=== PATIENT | male | born 1945 | race Caucasian/White ===

== ENCOUNTER 2017-07-31 17:36 | Inpatient (IN) | payer MEDICARE, OTHER ==
[~2017-07-31] VITALS: Ht 193 cm; Wt 119.3 kg
[2017-07-31] VITALS (11 sets, daily range): BP systolic 83–112; BP diastolic 64–87
[~2017-07-31 17:36] MED LIST: ASCO10002 PO; SERT100T PO
[2017-07-31] MEDS ORDERED: ACETAMINOPHEN 325 MG TABLET. PO PRN (19:30)
[2017-07-31] MEDS ORDERED: MAG HYDROX/ALUMINUM HYD/SIMETH 30 ML ORAL.SUSP PO PRN (19:30)
[2017-07-31] MEDS ORDERED: CALCIUM CARBONATE 500 MG TAB.CHEW PO PRN (19:30)
[2017-07-31] MEDS ORDERED: KETOROLAC 15 MG/ML VIAL. IV PRN (19:30)
[2017-07-31] MEDS ORDERED: PROCHLORPERAZINE 10 MG/2 ML VIAL. IV PRN (19:30)
[2017-07-31] MEDS ORDERED: ONDANSETRON PF 4 MG/2 ML VIAL. IV PRN (19:30)
[2017-07-31] MEDS ORDERED: IBUPROFEN 400 MG TABLET. PO PRN (19:30)
[2017-07-31] MEDS ORDERED: MORPHINE SULFATE 4 MG/ML DISP.SYRIN. IV PRN (19:30)
[2017-07-31] MEDS ORDERED: PROCHLORPERAZINE 25 MG SUPP.RECT. PR PRN (19:30)
[2017-07-31] MEDS ORDERED: oxyCODONE IR 5 MG TABLET PO PRN (19:30)
[2017-07-31] MEDS ORDERED: MAGNESIUM HYDROXIDE 2,400 MG/30 ML ORAL.SUSP. PO PRN (19:30)
[2017-07-31] MEDS ORDERED: BISACODYL 10 MG SUPP.RECT. PR PRN (19:30)
--- NOTE | 2017-07-31 20:12 | PDOC1 ---
History and Physical Date of Admission Date of Admission DATE: 07/31/17 TIME: 20:06 Identification/Chief Complaint Chief Complaint SOA, palpitations Problems: Source Source: Caregiver, Chart review, Patient History of Present Illness History of Present Illness Very pleasant 72 y.o male who was in PCP office Dr Mcdonald today for an annual physical when PCP found him to be in atrial fib RVR. New to him, ONly pas medical is depression on zoloft 100qhs and ASA 81. HE is a prev heavy drinker/alcoholic and smoker but sober now for many yrs, PCP did CT chest which showed also possible subsegmental filling defect that could be either small PE or artifactual,. HE has noticed some SOA past few weeks, Good mobility, no leg edema, no recent long travels or sx. Admitted to ICU, He did get lovenox SQ at [place], HR 1teens now, sweaty.no CP. BP good, at bedside,. Past Medical History Psych: Addictions, Depression Past Surgical History Past Surgical History: No pertinent history Family History Family History: Hypertension Social History Smoke: Quit ALCOHOL: other (recovered alcoholic) Current Medications Current Medications Current Medications Ondansetron HCl (Zofran) 4 mg PRN Q6HRS PRN IV NAUSEA/VOMITING; Start 07/31/17 at 19:30 Prochlorperazine Edisylate (Compazine) 10 mg PRN Q6HRS PRN IV NAUSEA/VOMITING; Start 07/31/17 at 19:30 Prochlorperazine (Compazine) 25 mg PRN Q12HR PRN [place] NAUSEA/VOMITING; Start at 19:30 Al Hydroxide/Mg Hydroxide (Mylanta Plus Xs) 30 ml PRN Q3HRS PRN PO HEARTBURN / GAS; Start 07/31/17 at 19:30 Calcium Carbonate/ Glycine (Tums) 500 mg PRN Q3HRS PRN PO UPSET STOMACH; Start 07/31/17 at 19:30 Oxycodone HCl (Roxicodone) 5 mg PRN Q3HRS PRN PO BREAKTHROUGH PAIN; Start 07/31 at 19:30 Morphine Sulfate 1 mg PRN Q1HR PRN IV PAIN; Start 07/31/17 at 19:30 Ketorolac Tromethamine (Toradol) 15 mg PRN Q6HRS PRN IV PAIN; Start 07/31/17 at 19:30; Stop 08/05/17 at 19:29 Acetaminophen (Tylenol) 650 mg PRN Q6HRS PRN PO Headaches, Temp > 101.5F; Start 07/31/17 at 19:30 Ibuprofen (Motrin) 400 mg PRN Q6HRS PRN PO MILD PAIN; Start 07/31/17 at 19:30 Docusate Sodium (Colace) 100 mg BID PO ; Start 07/31/17 at 21:00 Magnesium Hydroxide (Milk Of Magnesia) 2,400 mg PRN Q12HR PRN PO CONSTIPATION; Start 07/31/17 at 19:30 Bisacodyl (Dulcolax Supp) 10 mg PRN DAILY PRN [place] CONSTIPATION; Start 07/31/17 at 19:30 Ceftriaxone Sodium 1 gm/ Sodium Chloride 50 ml @ 100 mls/hr Q24H IV ; Start at 09:00 Sertraline HCl (Zoloft) 100 mg DAILY PO ; Start 08/01/17 at 09:00 Ascorbic Acid (Vitamin C) 500 mg DAILY PO ; Start 08/01/17 at 09:00 Active Scripts Active Reported Zoloft (Sertraline Hcl) 100 Mg Tablet 100 Mg PO DAILY Vitamin C (Ascorbic Acid) 1,000 Mg Tablet 1,000 Mg PO Allergies Allergies: Coded Allergies: venlafaxine (Verified Allergy, Intermediate, Rash, 07/08/16) ROS Review of System as per HPI, otherwise all else is neg, 14 pt reviewed Physical Exam General: Alert, Oriented X3, Cooperative, No acute distress HEENT: Atraumatic, PERRLA Lungs: Clear to auscultation, Normal air movement Heart: no gallops, no murmurs, murmurs, no jug vein distention, irregularly irregular Abdomen: Normal bowel sounds, Soft, No tenderness, No hepatosplenomegaly, No masses Male Genitals Exam: normal genitalia, normal prostate Rectal Exam: not examined PELVIC: Nml ext genitalia Extremities: No clubbing, No cyanosis, No edema, Normal pulses, No tenderness/ swelling Skin: No rashes, No breakdown, No significant lesion Neuro: Normal gait, Normal speech, Strength at 5/5 X4 ext, Normal tone, Sensation intact, Cranial nerves 3-12 NL, Reflexes 2+ Psych/Mental Status: Mental status NL, Mood NL VTE Prophylaxis Ordered VTE Prophylaxis Devices: Yes VTE Pharmacological Prophylaxi: Yes Assessment/Plan Assessment/Plan 1. New atrial fib RVF 2. SUbsegmental pulmonary filling defect, Small PE vs artifactual 3. Recoverd alcoholic 4. Ex smoker - [id number] yrs ago 5. Depression NOS PLAn: Admit ICU CArdizem gtt Lovenox qweight based 120 BID since also ? PE Check venous dopplers Seek pulmo opinion re this ? small PE Check TSH and calcium mag and elytes and basic labs in AM Cycle CE Cards consult PT/OT Ambulate ad janes when rate better Afib plan and tx dw and pt - agreeable Seen in ICU Dw PCP MARISSA Salter MD Jul 31, 2017 20:12
[2017-07-31] MEDS ORDERED: chlordiazePOXIDE HCL 25 MG CAPSULE PO PRN (20:15)
[2017-07-31] MEDS: DOCUSATE SODIUM 100 MG CAPSULE. PO SCH (20:37)
[2017-08-01] VITALS (15 sets, daily range): BP systolic 76–163; BP diastolic 57–106
[2017-08-01 04:57] LABS: BASO % 0 % (0-3); EOS % 5 % (0-3); HEMATOCRIT 40.5 % (39.0-53.0); HEMOGLOBIN 13.9 g/dL (13.0-17.5); LYMPH # 1.1 x10^3/uL (1.0-4.8); LYMPH % 12 % (24-48); MEAN CORPUSCULAR HEMOGLOBIN 34 pg (25-35); MEAN CORPUSCULAR HGB CONC 34 g/dL (31-37); MEAN CORPUSCULAR VOLUME 100 fL (79-100); MONO % 8 % (0-9); NEUT % 75 % (31-73); PLATELET COUNT 161 x10^3/uL (140-400); RED BLOOD COUNT 4.05 x10^6/uL (4.30-5.70); RED CELL DISTRIBUTION WIDTH 13.7 % (11.5-14.5)
[2017-08-01 05:20] LABS: INR 1.4 (0.8-1.1)
--- NOTE | 2017-08-01 07:16 | PDOC ---
CARDIOLOGY PROGRESS NOTE SUBJECTIVE: Transferred from [place] for Cardiomyopathy eval. Please see consult note from [facility]. Today reports that symptoms of dyspnea are labile, on/off. No chest pain. OBJECTIVE: Vital SIgns: Vital Signs Date Time Temp Pulse Resp B/P (MAP) Pulse Ox O2 Delivery O2 Flow Rate FiO2 08/01/17 06:12 104 20 108/85 (93) 95 Nasal Cannula 2.0 08/01/17 04:15 97.4 97.4 Objective: Gen: A/O x3. NAD CVS; Irr irr. No m/r/g PULM: CTAB ABD: Soft, NT/ND +BS EXT: No edema. Diminished pulses. NEURO:Non-focal exam. CURRENT MEDICATIONS: No current CV meds. On Lovenox. DIAGNOSTIC TESTING: Tele: HR 110's ASSESSMENT: 1. New onset atrial fibrillation - likely ongoing for several months based on description 2. New onset cardiomyopathy - acute on chronic systolic heart failure 3. Possible P.E - likely artifact Problems: PLAN: 1. Start Metoprolol 25mg q 6 hours for rate control. Stop Diltiazem 2. Continue Lovenox for anticoagulation for afib - will hold dose on thursday morning in prep for cardiac cath on thursday. 3. Suspect his cardiomyopathy may be related to alcohol use in the past and or new afib. Given age, will rule out heart disease. 4. Lasix 40mg ivp daily for diuresis. Monitor lytes daily Will follow along. Thanks for consultation. Please see consult note from [place] for full details. ROSALIA BRYANT MD Aug 01, 2017 07:16
[2017-08-01 07:40] LABS: CALCIUM 8.7 mg/dL (8.5-10.1); CREATININE 0.9 mg/dL (0.7-1.3); GFR 82.7; POTASSIUM 4.4 mmol/L (3.5-5.1)
--- NOTE | 2017-08-01 08:23 | EKG ---
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 R-S TRANSITION ZONE IN V LEADS DISPLACED TO THE LEFT LOW LIMB LEAD VOLTAGE S1,S2,S3 PATTERN NONSPECIFIC ST-T WAVE CHANGES. RI6.01 No previous ECG available for comparison Electronically Signed On 08-19-2017 10:46:14 CDT by Kingsley Bhakta
[2017-08-01] MEDS ORDERED: ASCORBIC ACID 500 MG TABLET PO SCH (09:00)
[2017-08-01] MEDS: DOCUSATE SODIUM 100 MG CAPSULE. PO SCH ×2 (09:23→09:31)
[2017-08-01] MEDS: METOPROLOL TART IMMED RELEASE 25 MG TABLET. PO SCH ×4 (09:24→23:50)
[2017-08-01] MEDS: FUROSEMIDE 40 MG/4 ML VIAL. IVP SCH (09:26)
[2017-08-01] MEDS: SERTRALINE 50 MG TABLET. PO SCH (09:27)
--- NOTE | 2017-08-01 10:11 | PDOC ---
PROGRESS NOTES Chief Complaint Chief Complaint 1. New atrial fib RVF 2. SUbsegmental pulmonary filling defect, Small PE vs artifactual 3. Recoverd alcoholic 4. Ex smoker - [id number] yrs ago 5. Depression NOS 6. 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 History of Present Illness History of Present Illness Seen in iCU SOme soa but no CP BP tanked with cardizem gtt Getting lovenox BID dose NO hx pE in past [facility]ds note reviewed, planned on [facility] thursday, start PO BB today - stop cardziem' COnt BID lovenox dose, await pulmo opinion re ? PE Discussed all tehse with and pt PLAN: [facility] thursday OK to t/o ICU COnt lovenox BID dose Follow cards and pulmo recs Supprotive meds To start PO BB today Vitals Vitals Vital Signs Date Time Temp Pulse Resp B/P (MAP) Pulse Ox O2 Delivery O2 Flow Rate FiO2 08/01/17 09:24 152/84 08/01/17 06:12 104 20 95 Nasal Cannula 2.0 08/01/17 04:15 97.4 97.4 Physical Exam General: Alert, Oriented X3, Cooperative, No acute distress Abdomen: Normal bowel sounds, Soft, No tenderness, No hepatosplenomegaly, No masses Extremities: No clubbing, No cyanosis, No edema, Normal pulses, No tenderness/ swelling Skin: No rashes, No breakdown, No significant lesion Labs LABS Laboratory Tests Test 08/01/17 04:00 08/01/17 04:30 White Blood Count 9.0 x10^3/uL (4.0-11.0) Red Blood Count 4.05 x10^6/uL (4.30-5.70) Hemoglobin 13.9 g/dL (13.0-17.5) Hematocrit 40.5 % (39.0-53.0) Mean Corpuscular Volume 100 fL (79-100) Mean Corpuscular Hemoglobin 34 pg (25-35) Mean Corpuscular Hemoglobin Concent 34 g/dL (31-37) Red Cell Distribution Width 13.7 % (11.5-14.5) Platelet Count 161 x10^3/uL (140-400) Neutrophils (%) (Auto) 75 % (31-73) Lymphocytes (%) (Auto) 12 % (24-48) Monocytes (%) (Auto) 8 % (0-9) Eosinophils (%) (Auto) 5 % (0-3) Basophils (%) (Auto) 0 % (0-3) Neutrophils # (Auto) 6.7 x10^3uL (1.8-7.7) Lymphocytes # (Auto) 1.1 x10^3/uL (1.0-4.8) Monocytes # (Auto) 0.7 x10^3/uL (0.0-1.1) Eosinophils # (Auto) 0.5 x10^3/uL (0.0-0.7) Basophils # (Auto) 0.0 x10^3/uL (0.0-0.2) Prothrombin Time 16.0 SEC (11.7-14.0) Prothromb Time International Ratio 1.4 (0.8-1.1) Sodium Level 137 mmol/L (136-145) Potassium Level 4.4 mmol/L (3.5-5.1) Chloride Level 101 mmol/L (98-107) Carbon Dioxide Level 25 mmol/L (21-32) Anion Gap 11 (6-14) Blood Urea Nitrogen 16 mg/dL (8-26) Creatinine 0.9 mg/dL (0.7-1.3) Estimated GFR (Cockcroft-Gault) 82.7 Glucose Level 127 mg/dL (70-99) Calcium Level 8.8 mg/dL (8.5-10.1) Phosphorus Level 3.0 mg/dL (2.6-4.7) Magnesium Level 2.0 mg/dL (1.8-2.4) Thyroid Stimulating Hormone (TSH) 1.786 uIU/mL (0.358-3.74) Review of Systems Review of Systems soa Comment Review of Relevant I have reviewed the following items yo (where applicable) has been applied. Labs Laboratory Tests Test 08/01/17 04:00 08/01/17 04:30 White Blood Count 9.0 x10^3/uL (4.0-11.0) Red Blood Count 4.05 x10^6/uL (4.30-5.70) Hemoglobin 13.9 g/dL (13.0-17.5) Hematocrit 40.5 % (39.0-53.0) Mean Corpuscular Volume 100 fL (79-100) Mean Corpuscular Hemoglobin 34 pg (25-35) Mean Corpuscular Hemoglobin Concent 34 g/dL (31-37) Red Cell Distribution Width 13.7 % (11.5-14.5) Platelet Count 161 x10^3/uL (140-400) Neutrophils (%) (Auto) 75 % (31-73) Lymphocytes (%) (Auto) 12 % (24-48) Monocytes (%) (Auto) 8 % (0-9) Eosinophils (%) (Auto) 5 % (0-3) Basophils (%) (Auto) 0 % (0-3) Neutrophils # (Auto) 6.7 x10^3uL (1.8-7.7) Lymphocytes # (Auto) 1.1 x10^3/uL (1.0-4.8) Monocytes # (Auto) 0.7 x10^3/uL (0.0-1.1) Eosinophils # (Auto) 0.5 x10^3/uL (0.0-0.7) Basophils # (Auto) 0.0 x10^3/uL (0.0-0.2) Prothrombin Time 16.0 SEC (11.7-14.0) Prothromb Time International Ratio 1.4 (0.8-1.1) Sodium Level 137 mmol/L (136-145) Potassium Level 4.4 mmol/L (3.5-5.1) Chloride Level 101 mmol/L (98-107) Carbon Dioxide Level 25 mmol/L (21-32) Anion Gap 11 (6-14) Blood Urea Nitrogen 16 mg/dL (8-26) Creatinine 0.9 mg/dL (0.7-1.3) Estimated GFR (Cockcroft-Gault) 82.7 Glucose Level 127 mg/dL (70-99) Calcium Level 8.8 mg/dL (8.5-10.1) Phosphorus Level 3.0 mg/dL (2.6-4.7) Magnesium Level 2.0 mg/dL (1.8-2.4) Thyroid Stimulating Hormone (TSH) 1.786 uIU/mL (0.358-3.74) Laboratory Tests Test 08/01/17 04:00 08/01/17 04:30 White Blood Count 9.0 x10^3/uL (4.0-11.0) Red Blood Count 4.05 x10^6/uL (4.30-5.70) Hemoglobin 13.9 g/dL (13.0-17.5) Hematocrit 40.5 % (39.0-53.0) Mean Corpuscular Volume 100 fL (79-100) Mean Corpuscular Hemoglobin 34 pg (25-35) Mean Corpuscular Hemoglobin Concent 34 g/dL (31-37) Red Cell Distribution Width 13.7 % (11.5-14.5) Platelet Count 161 x10^3/uL (140-400) Neutrophils (%) (Auto) 75 % (31-73) Lymphocytes (%) (Auto) 12 % (24-48) Monocytes (%) (Auto) 8 % (0-9) Eosinophils (%) (Auto) 5 % (0-3) Basophils (%) (Auto) 0 % (0-3) Neutrophils # (Auto) 6.7 x10^3uL (1.8-7.7) Lymphocytes # (Auto) 1.1 x10^3/uL (1.0-4.8) Monocytes # (Auto) 0.7 x10^3/uL (0.0-1.1) Eosinophils # (Auto) 0.5 x10^3/uL (0.0-0.7) Basophils # (Auto) 0.0 x10^3/uL (0.0-0.2) Prothrombin Time 16.0 SEC (11.7-14.0) Prothromb Time International Ratio 1.4 (0.8-1.1) Sodium Level 137 mmol/L (136-145) Potassium Level 4.4 mmol/L (3.5-5.1) Chloride Level 101 mmol/L (98-107) Carbon Dioxide Level 25 mmol/L (21-32) Anion Gap 11 (6-14) Blood Urea Nitrogen 16 mg/dL (8-26) Creatinine 0.9 mg/dL (0.7-1.3) Estimated GFR (Cockcroft-Gault) 82.7 Glucose Level 127 mg/dL (70-99) Calcium Level 8.8 mg/dL (8.5-10.1) Phosphorus Level 3.0 mg/dL (2.6-4.7) Magnesium Level 2.0 mg/dL (1.8-2.4) Thyroid Stimulating Hormone (TSH) 1.786 uIU/mL (0.358-3.74) Medications Current Medications Ondansetron HCl (Zofran) 4 mg PRN Q6HRS PRN IV NAUSEA/VOMITING, 1ST CHOICE; Start 07/31/17 at 19:30 Prochlorperazine Edisylate (Compazine) 10 mg PRN Q6HRS PRN IV NAUSEA/VOMITING, 2ND CHOICE; Start 07/31/17 at 19:30 Prochlorperazine (Compazine) 25 mg PRN Q12HR PRN [place] NAUSEA/VOMITING; Start at 19:30 Al Hydroxide/Mg Hydroxide (Mylanta Plus Xs) 30 ml PRN Q3HRS PRN PO HEARTBURN / GAS; Start 07/31/17 at 19:30 Calcium Carbonate/ Glycine (Tums) 500 mg PRN Q3HRS PRN PO UPSET STOMACH; Start 07/31/17 at 19:30 Oxycodone HCl (Roxicodone) 5 mg PRN Q3HRS PRN PO BREAKTHROUGH PAIN; Start 07/31 at 19:30 Morphine Sulfate 1 mg PRN Q1HR PRN IV PAIN; Start 07/31/17 at 19:30 Ketorolac Tromethamine (Toradol) 15 mg PRN Q6HRS PRN IV PAIN; Start 07/31/17 at 19:30; Stop 08/05/17 at 19:29 Acetaminophen (Tylenol) 650 mg PRN Q6HRS PRN PO Headaches, Temp > 101.5F; Start 07/31/17 at 19:30 Ibuprofen (Motrin) 400 mg PRN Q6HRS PRN PO MILD PAIN; Start 07/31/17 at 19:30 Docusate Sodium (Colace) 100 mg BID PO ; Start 07/31/17 at 21:00 Magnesium Hydroxide (Milk Of Magnesia) 2,400 mg PRN Q12HR PRN PO CONSTIPATION; Start 07/31/17 at 19:30 Bisacodyl (Dulcolax Supp) 10 mg PRN DAILY PRN [place] CONSTIPATION; Start 07/31/17 at 19:30 Ceftriaxone Sodium 1 gm/ Sodium Chloride 50 ml @ 100 mls/hr Q24H IV Last administered on 08/01/17t 09:26; Start 08/01/17 at 09:00 Sertraline HCl (Zoloft) 100 mg DAILY PO Last administered on 08/01/17 09:27; Start 08/01/17 at 09:00 Ascorbic Acid (Vitamin C) 500 mg DAILY PO Last administered on 08/01/17 09:23 ; Start 08/01/17 at 09:00 Enoxaparin Sodium (Lovenox 120mg Syringe) 120 mg Q12HR SQ Last administered on 08/01/17 09:24; Start 07/31/17 at 21:00 Chlordiazepoxide (Librium) 25 mg PRN Q6HRS PRN PO ANXIETY / AGITATION; Start at 20:15 Diltiazem HCl 125 mg/Dextrose 125 ml @ 0 mls/hr CONT PRN IV SEE I/O RECORD Last administered on 07/31/17 20:37; Start 07/31/17 at 20:15 Zolpidem Tartrate (Ambien) 5 mg PRN QHS PRN PO INSOMNIA; Start 07/31/17 at 20: 15 Metoprolol Tartrate (Lopressor) 25 mg Q6HRS PO Last administered on 08/01/17 09:24; Start 08/01/17 at 07:30 Furosemide (Lasix) 40 mg DAILY IVP Last administered on 08/01/17 09:26; Start 08/01/17 at 09:00 Active Scripts Active Reported Zoloft (Sertraline Hcl) 100 Mg Tablet 100 Mg PO DAILY Vitals/I & O Vital Sign - Last 24 Hours 07/31/17 07/31/17 07/31/17 07/31/17 18:45 19:00 19:30 20:00 Temp 99.1 99.1 Pulse 125 126 128 Resp 20 20 20 B/P (MAP) 107/80 (89) 108/80 (89) 100/87 (91) Pulse Ox 95 95 O2 Delivery Room Air Room Air Room Air Room Air 07/31/17 07/31/17 07/31/17 07/31/17 20:30 20:37 20:50 21:00 Pulse 120 130 115 133 Resp 20 27 27 24 B/P (MAP) 102/66 (78) 102/66 (78) 112/77 (89) 100/75 (83) Pulse Ox 90 91 94 94 O2 Delivery Room Air Room Air Room Air Room Air 07/31/17 07/31/17 07/31/17 07/31/17 21:15 21:30 22:15 23:00 Pulse 108 107 106 102 Resp 20 20 20 B/P (MAP) 83/65 (71) 85/64 (71) 94/69 (77) 94/71 (79) Pulse Ox 91 92 96 O2 Delivery BiPAP/CPAP Nasal Cannula Nasal Cannula O2 Flow Rate 2.0 2.0 08/01/17 08/01/17 08/01/17 08/01/17 00:00 00:00 01:12 02:03 Temp 98.4 98.4 Pulse 108 98 107 Resp 20 20 B/P (MAP) 93/70 (78) 91/65 (74) 76/59 (65) Pulse Ox 94 92 O2 Delivery Nasal Cannula Room Air Nasal Cannula O2 Flow Rate 2.0 2.0 08/01/17 08/01/17 08/01/17 08/01/17 02:18 03:10 04:02 04:05 Pulse 104 95 101 Resp 20 20 20 B/P (MAP) 85/65 (72) 99/57 (71) 82/71 (75) Pulse Ox 92 97 95 O2 Delivery Nasal Cannula Nasal Cannula Room Air Nasal Cannula O2 Flow Rate 2.0 2.0 2.0 08/01/17 08/01/17 08/01/17 08/01/17 04:15 05:00 06:12 09:24 Temp 97.4 97.4 Pulse 104 104 Resp 20 20 B/P (MAP) 101/67 (78) 108/85 (93) 152/84 Pulse Ox 95 95 O2 Delivery Nasal Cannula Nasal Cannula O2 Flow Rate 2.0 2.0 MARISSA LILLY MD Aug 01, 2017 10:11
--- NOTE | 2017-08-01 10:20 | RAD ---
Bilateral lower extremity venous Doppler. History: Short of air, atrial fibrillation Bilateral lower extremity venous Doppler study was performed. Real-time imaging with compression, color-flow imaging, and spectral Doppler with augmentation were utilized for evaluation. The common femoral, femoral and popliteal veins are compressible in both lower extremities. There is normal flow with color imaging in both lower extremities. There is normal antegrade flow with augmentation. There is flow in the greater saphenous vein in both lower extremities. There is flow with color imaging in the deep femoral veins in both lower extremities. There is flow with color imaging and spectral Doppler with augmentation in the calf veins in both lower extremities. Impression: 1. Bilateral lower extremity venous Doppler negative for acute deep venous thrombosis.
--- NOTE | 2017-08-01 11:05 | PDOC ---
Provider Note Provider Note dictated CORAZON HANDLEY MD Aug 01, 2017 11:05
--- NOTE | 2017-08-01 11:49 | CONS ---
DATE OF CONSULTATION: ATTENDING PHYSICIAN: Dr. Nesbitt. REASON FOR CONSULTATION: Possible PE. HISTORY OF PRESENT ILLNESS: Mr. Kan is a 72-year-old male who is obese, with a BMI of 29.1. He has a history of tobacco use and also obstructive sleep apnea, for which he is on CPAP. He presented to his primary care physician, Dr. Arvizu, for annual physical and was found to have atrial fibrillation with rapid ventricular response. Upon questioning, he has been having shortness of breath for the last one month; however, the shortness of breath is only noticeable at rest and not with exertion. He has history of heavy alcohol abuse, however, he states he has been sober for the last 6 months. He had a CT chest done at [facility], which was reviewed by me and also I have discussed with Dr. Skelton, in Radiology. There is a very tiny subsegmental filling defect in the right lower lobe, which could be an artifact as well, but on coronal sections, does appear to be a tiny defect. The patient has no prior history of thromboembolic disease. He has been anticoagulated for two reasons, including atrial fibrillation and also for a subsegmental thrombus. He smoked for about 30 years before quitting. No weight loss. He has been treated for urinary tract infection. No cough, no chest pain, no leg edema. PAST MEDICAL HISTORY: Significant for history of depression, history of underlying COPD, history of alcohol abuse, suspected alcoholic liver disease, history of obstructive sleep apnea. FAMILY HISTORY: Hypertension. PAST SURGICAL HISTORY: No recent surgeries. SOCIAL HISTORY: Alcoholism for many years, at least 35 years. History of tobacco use for 30 years before quitting 15 years ago. ALLERGIES: VENLAFAXINE. MEDICATIONS: Reviewed, as listed in the MRAD. REVIEW OF SYSTEMS: Twelve-point system obtained. Pertinent positives discussed in my history of present illness, otherwise noncontributory. All systems that were negative were reviewed as well. PHYSICAL EXAMINATION: GENERAL: He is awake, following commands. VITAL SIGNS: Blood pressure 163/106, pulse is irregular, afebrile, pulse ox 95% on 2 liters. NECK: Supple. LUNGS: Clear. CARDIOVASCULAR: Regular rate with an irregular rhythm. ABDOMEN: Soft, obese. EXTREMITIES: With no pitting edema. LABORATORY DATA: Reviewed. White cell count 9.0, hemoglobin 13.9, platelets are 161, BUN 16, creatinine 0.9. INR 1.4. IMPRESSION: 1. Abnormal CT chest with a tiny questionable subsegmental thrombus in the right lower lobe pulmonary artery. The clinical significance of that is of questionable importance. However, since he has been short of breath for about a month and came in with a new onset atrial fibrillation, the possibility of him having a small pulmonary embolism 3-4 weeks earlier cannot be completely ruled out, and I would recommend treating this tiny pulmonary embolism with 4-6 weeks of anticoagulation. 2. New onset atrial fibrillation, which primarily is responsible for his dyspnea for the past 1 month . HR rate is now better controlled while on Cardizem drip. 3. History of obstructive sleep apnea, on home CPAP with good compliance. 4. Underlying obesity. 5. History of alcoholic liver disease. 6. History of tobacco use, probably underlying chronic obstructive pulmonary disease. 7. Urinary tract infection. RECOMMENDATION: 1. Continue full dose Lovenox and initiate Coumadin. 2. From a pulmonary standpoint, 4-6 weeks of anticoagulation would be reasonable. I will repeat CT chest in 4 weeks. After 6 weeks, the decision to continue anticoagulation will be up to Cardiology, if they want to continue for atrial fibrillation. 3. P.r.n. bronchodilators. 4. Antibiotics per PCP for UTI. 5. Continue CPAP at bedtime. 6. Repeat CT chest in 4 weeks. 7. Obtain venous Dopplers of lower extremities. 8. Discussed with the patient's and discussed with RN and discussed with Radiology. Critical care time, 35 minutes. CORAZON HANDLEY MD DR: CHANDA/beth JOB#: [id number] / [id number] RAMONA
[2017-08-01] MEDS ORDERED: IPRA3AMP NEB (18:35)
[2017-08-01] MEDS ORDERED: INSU100I17 SQ (18:35)
[2017-08-02] VITALS: BP 119/86
[2017-08-02] MEDS: METOPROLOL TART IMMED RELEASE 25 MG TABLET. PO SCH ×5 (05:59→23:48)
[2017-08-02 06:00] VITALS: BP 111/89
--- NOTE | 2017-08-02 07:37 | PDOC ---
CARDIOLOGY PROGRESS NOTE SUBJECTIVE: No acute events overnight. OBJECTIVE: Vital SIgns: Vital Signs Date Time Temp Pulse Resp B/P (MAP) Pulse Ox O2 Delivery O2 Flow Rate FiO2 08/02/17 06:33 91 111/89 08/02/17 06:00 98.1 20 95 Nasal Cannula 3.0 98.1 I & O -1L Objective: GEN.: No apparent distress. Alert and oriented. HEENT: Head is normocephalic, atraumatic NECK: Supple. LUNGS: Clear to auscultation. HEART: Irr irr ABDOMEN: Soft, nontender. Positive bowel sounds. EXTREMITIES: Without any cyanosis. NEUROLOGIC: Normal speech, normal tone PSYCHIATRIC: Normal affect, normal mood. SKIN: No ulcerations CURRENT MEDICATIONS: Lasix 40mg IVP daily Metoprolol 25mg q 6 hrs Lovenox 120mg bid ASSESSMENT: 1. New onset acute on chronic systolic and diastolic HF 2. Persistent atrial fibrillation Problems: PLAN: 1. Plan for left heart cath tomorrow. Hold a.m. lovenox dose. 2. Plan for TONJA/CVN on thursday pending heart cath findings. 3. Continue current meds otherwise. Will follow. ROSALIA BRYANT MD Aug 02, 2017 07:37
[2017-08-02] MEDS: DOCUSATE SODIUM 100 MG CAPSULE. PO SCH ×2 (07:38→21:00)
[2017-08-02 08:00] VITALS: BP 107/80
[2017-08-02 09:02] LABS: INR 1.1 (0.8-1.1); PROTHROMBIN TIME PATIENT 13.9 SEC (11.7-14.0)
[2017-08-02 09:13] LABS: ALBUMIN 3.5 g/dL (3.4-5.0); ALBUMIN/GLOBULIN RATIO 1.1 (1.0-1.7); CALCIUM 8.7 mg/dL (8.5-10.1); CREATININE 0.9 mg/dL (0.7-1.3); GFR 82.7; POTASSIUM 3.6 mmol/L (3.5-5.1); TOTAL BILIRUBIN 1.4 mg/dL (0.2-1.0); TOTAL PROTEIN 6.8 g/dL (6.4-8.2)
[2017-08-02] MEDS: SERTRALINE 50 MG TABLET. PO SCH (09:18)
[2017-08-02] MEDS: FUROSEMIDE 40 MG/4 ML VIAL. IVP SCH (09:19)
--- NOTE | 2017-08-02 10:51 | PDOC ---
PROGRESS NOTES Chief Complaint Chief Complaint 1. New atrial fib RVF 2. SUbsegmental pulmonary filling defect, Small PE vs artifactual 3. Recoverd alcoholic 4. Ex smoker - [id number] yrs ago 5. Depression NOS 6. 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 History of Present Illness History of Present Illness Seen in iCU but CVC status Looks good, no inc in soa, no CP Tolerating BB started by cads thursday fine PLanned for [facility] nikko by cards PUlmo note reviewed, AC 4-[address] chest in 6 weeks re check that "small PE" Further recs on AC depending on [facility] findings nikko PLAN: [facility] thursday NPO post mNDw pt, RN and COnt lovenox BID dose for now AC OP 4-6 weeks at least Vitals Vitals Vital Signs Date Time Temp Pulse Resp B/P (MAP) Pulse Ox O2 Delivery O2 Flow Rate FiO2 08/02/17 06:33 91 111/89 08/02/17 06:00 98.1 20 95 Nasal Cannula 3.0 98.1 Physical Exam General: Alert, Oriented X3, Cooperative, No acute distress Abdomen: Normal bowel sounds, Soft, No tenderness, No hepatosplenomegaly, No masses Extremities: No clubbing, No cyanosis, No edema, Normal pulses, No tenderness/ swelling Skin: No rashes, No breakdown, No significant lesion Labs LABS Laboratory Tests Test 08/02/17 08:30 Prothrombin Time 13.9 SEC (11.7-14.0) Prothromb Time International Ratio 1.1 (0.8-1.1) Sodium Level 137 mmol/L (136-145) Potassium Level 3.6 mmol/L (3.5-5.1) Chloride Level 101 mmol/L (98-107) Carbon Dioxide Level 26 mmol/L (21-32) Anion Gap 10 (6-14) Blood Urea Nitrogen 16 mg/dL (8-26) Creatinine 0.9 mg/dL (0.7-1.3) Estimated GFR (Cockcroft-Gault) 82.7 BUN/Creatinine Ratio 18 (6-20) Glucose Level 107 mg/dL (70-99) Calcium Level 8.7 mg/dL (8.5-10.1) Total Bilirubin 1.4 mg/dL (0.2-1.0) Aspartate Amino Transf (AST/SGOT) 46 U/L (15-37) Alanine Aminotransferase (ALT/SGPT) 92 U/L (16-63) Alkaline Phosphatase 76 U/L (46-116) Total Protein 6.8 g/dL (6.4-8.2) Albumin 3.5 g/dL (3.4-5.0) Albumin/Globulin Ratio 1.1 (1.0-1.7) Review of Systems Review of Systems denies 14 pt reviewed Comment Review of Relevant I have reviewed the following items yo (where applicable) has been applied. Labs Laboratory Tests Test 07/31/17 23:30 08/01/17 04:00 08/01/17 04:30 08/02/17 08:30 Nasal Screen MRSA (PCR) Negative (Negative) White Blood Count 9.0 x10^3/uL (4.0-11.0) Red Blood Count 4.05 x10^6/uL (4.30-5.70) Hemoglobin 13.9 g/dL (13.0-17.5) Hematocrit 40.5 % (39.0-53.0) Mean Corpuscular Volume 100 fL (79-100) Mean Corpuscular Hemoglobin 34 pg (25-35) Mean Corpuscular Hemoglobin Concent 34 g/dL (31-37) Red Cell Distribution Width 13.7 % (11.5-14.5) Platelet Count 161 x10^3/uL (140-400) Neutrophils (%) (Auto) 75 % (31-73) Lymphocytes (%) (Auto) 12 % (24-48) Monocytes (%) (Auto) 8 % (0-9) Eosinophils (%) (Auto) 5 % (0-3) Basophils (%) (Auto) 0 % (0-3) Neutrophils # (Auto) 6.7 x10^3uL (1.8-7.7) Lymphocytes # (Auto) 1.1 x10^3/uL (1.0-4.8) Monocytes # (Auto) 0.7 x10^3/uL (0.0-1.1) Eosinophils # (Auto) 0.5 x10^3/uL (0.0-0.7) Basophils # (Auto) 0.0 x10^3/uL (0.0-0.2) Prothrombin Time 16.0 SEC (11.7-14.0) 13.9 SEC (11.7-14.0) Prothromb Time International Ratio 1.4 (0.8-1.1) 1.1 (0.8-1.1) Sodium Level 137 mmol/L (136-145) 137 mmol/L (136-145) Potassium Level 4.4 mmol/L (3.5-5.1) 3.6 mmol/L (3.5-5.1) Chloride Level 101 mmol/L (98-107) 101 mmol/L (98-107) Carbon Dioxide Level 25 mmol/L (21-32) 26 mmol/L (21-32) Anion Gap 11 (6-14) 10 (6-14) Blood Urea Nitrogen 16 mg/dL (8-26) 16 mg/dL (8-26) Creatinine 0.9 mg/dL (0.7-1.3) 0.9 mg/dL (0.7-1.3) Estimated GFR (Cockcroft-Gault) 82.7 82.7 Glucose Level 127 mg/dL (70-99) 107 mg/dL (70-99) Calcium Level 8.8 mg/dL (8.5-10.1) 8.7 mg/dL (8.5-10.1) Phosphorus Level 3.0 mg/dL (2.6-4.7) Magnesium Level 2.0 mg/dL (1.8-2.4) Thyroid Stimulating Hormone (TSH) 1.786 uIU/mL (0.358-3.74) BUN/Creatinine Ratio 18 (6-20) Total Bilirubin 1.4 mg/dL (0.2-1.0) Aspartate Amino Transf (AST/SGOT) 46 U/L (15-37) Alanine Aminotransferase (ALT/SGPT) 92 U/L (16-63) Alkaline Phosphatase 76 U/L (46-116) Total Protein 6.8 g/dL (6.4-8.2) Albumin 3.5 g/dL (3.4-5.0) Albumin/Globulin Ratio 1.1 (1.0-1.7) Laboratory Tests Test 08/02/17 08:30 Prothrombin Time 13.9 SEC (11.7-14.0) Prothromb Time International Ratio 1.1 (0.8-1.1) Sodium Level 137 mmol/L (136-145) Potassium Level 3.6 mmol/L (3.5-5.1) Chloride Level 101 mmol/L (98-107) Carbon Dioxide Level 26 mmol/L (21-32) Anion Gap 10 (6-14) Blood Urea Nitrogen 16 mg/dL (8-26) Creatinine 0.9 mg/dL (0.7-1.3) Estimated GFR (Cockcroft-Gault) 82.7 BUN/Creatinine Ratio 18 (6-20) Glucose Level 107 mg/dL (70-99) Calcium Level 8.7 mg/dL (8.5-10.1) Total Bilirubin 1.4 mg/dL (0.2-1.0) Aspartate Amino Transf (AST/SGOT) 46 U/L (15-37) Alanine Aminotransferase (ALT/SGPT) 92 U/L (16-63) Alkaline Phosphatase 76 U/L (46-116) Total Protein 6.8 g/dL (6.4-8.2) Albumin 3.5 g/dL (3.4-5.0) Albumin/Globulin Ratio 1.1 (1.0-1.7) Microbiology 08/01/17 Urine Culture - Preliminary, Resulted 08/01/17 Urine Culture Result 1 (SPENSER) - Preliminary, Resulted Medications Current Medications Ondansetron HCl (Zofran) 4 mg PRN Q6HRS PRN IV NAUSEA/VOMITING, 1ST CHOICE; Start 07/31/17 at 19:30 Prochlorperazine Edisylate (Compazine) 10 mg PRN Q6HRS PRN IV NAUSEA/VOMITING, 2ND CHOICE Last administered on 08/01/17t 18:11; Start 07/31/17 at 19:30 Prochlorperazine (Compazine) 25 mg PRN Q12HR PRN NE NAUSEA/VOMITING; Start at 19:30 Al Hydroxide/Mg Hydroxide (Mylanta Plus Xs) 30 ml PRN Q3HRS PRN PO HEARTBURN / GAS; Start 07/31/17 at 19:30 Calcium Carbonate/ Glycine (Tums) 500 mg PRN Q3HRS PRN PO UPSET STOMACH; Start 07/31/17 at 19:30 Oxycodone HCl (Roxicodone) 5 mg PRN Q3HRS PRN PO BREAKTHROUGH PAIN; Start 07/31 at 19:30 Morphine Sulfate 1 mg PRN Q1HR PRN IV PAIN; Start 07/31/17 at 19:30 Ketorolac Tromethamine (Toradol) 15 mg PRN Q6HRS PRN IV PAIN; Start 07/31/17 at 19:30; Stop 08/05/17 at 19:29 Acetaminophen (Tylenol) 650 mg PRN Q6HRS PRN PO Headaches, Temp > 101.5F; Start 07/31/17 at 19:30 Ibuprofen (Motrin) 400 mg PRN Q6HRS PRN PO MILD PAIN; Start 07/31/17 at 19:30 Docusate Sodium (Colace) 100 mg BID PO ; Start 07/31/17 at 21:00 Magnesium Hydroxide (Milk Of Magnesia) 2,400 mg PRN Q12HR PRN PO CONSTIPATION; Start 07/31/17 at 19:30 Bisacodyl (Dulcolax Supp) 10 mg PRN DAILY PRN NE CONSTIPATION; Start 07/31/17 at 19:30 Ceftriaxone Sodium 1 gm/ Sodium Chloride 50 ml @ 100 mls/hr Q24H IV Last administered on 08/02/17 10:03; Start 08/01/17 at 09:00 Sertraline HCl (Zoloft) 100 mg DAILY PO Last administered on 08/02/17 09:18; Start 08/01/17 at 09:00 Ascorbic Acid (Vitamin C) 500 mg DAILY PO Last administered on 08/01/17 09:23 ; Start 08/01/17 at 09:00; Stop 08/01/17 at 10:30; Status DC Enoxaparin Sodium (Lovenox 120mg Syringe) 120 mg Q12HR SQ Last administered on 08/02/17 09:22; Start 07/31/17 at 21:00 Chlordiazepoxide (Librium) 25 mg PRN Q6HRS PRN PO ANXIETY / AGITATION; Start at 20:15 Diltiazem HCl 125 mg/Dextrose 125 ml @ 0 mls/hr CONT PRN IV SEE I/O RECORD Last administered on 07/31/17 20:37; Start 07/31/17 at 20:15 Zolpidem Tartrate (Ambien) 5 mg PRN QHS PRN PO INSOMNIA; Start 07/31/17 at 20: 15 Metoprolol Tartrate (Lopressor) 25 mg Q6HRS PO Last administered on 08/02/17 06:33; Start 08/01/17 at 07:30 Furosemide (Lasix) 40 mg DAILY IVP Last administered on 08/02/17 09:19; Start 08/01/17 at 09:00 Active Scripts Active Reported Zoloft (Sertraline Hcl) 100 Mg Tablet 100 Mg PO DAILY Vitals/I & O Vital Sign - Last 24 Hours 08/01/17 08/01/17 08/01/17 08/01/17 11:00 12:00 14:48 16:00 Temp 98.8 97.7 98.8 97.7 Pulse 112 112 114 Resp 20 20 22 B/P (MAP) 108/87 (94) 117/95 (102) 119/81 143/103 (116) Pulse Ox 95 94 100 O2 Delivery Nasal Cannula Nasal Cannula Nasal Cannula O2 Flow Rate 18.0 20.0 20.0 08/01/17 08/01/17 08/01/17 08/01/17 18:17 20:00 20:00 23:50 Temp 98.0 98.0 Pulse 124 107 110 Resp 20 B/P (MAP) 107/76 109/80 (90) 119/86 Pulse Ox 95 O2 Delivery Nasal Cannula Nasal Cannula O2 Flow Rate 2.0 2.0 08/02/17 08/02/17 08/02/17 00:00 06:00 06:33 Temp 98.1 98.1 98.1 98.1 Pulse 110 110 91 Resp 20 20 B/P (MAP) 119/86 (97) 111/89 (96) 111/89 Pulse Ox 95 95 O2 Delivery Nasal Cannula Nasal Cannula O2 Flow Rate 3.0 3.0 MARISSA LILLY MD Aug 02, 2017 10:51
[2017-08-02] MEDS ORDERED: POTASSIUM CHLORIDE 20 MEQ TABLET.ER. PO ONE (11:30)
[2017-08-02 12:00] VITALS: BP 107/84
--- NOTE | 2017-08-02 13:05 | PDOC ---
PULMONARY PROGRESS NOTES Subjective no soa Vitals Vital Signs Date Time Temp Pulse Resp B/P (MAP) Pulse Ox O2 Delivery O2 Flow Rate FiO2 08/02/17 11:32 120 112/84 08/02/17 08:00 Room Air 08/02/17 08:00 98.7 20 92 98.7 08/02/17 06:00 3.0 General: Alert, No acute distress Lungs: Clear Cardiovascular: S1 Abdomen: Soft Neuro Exam: Alert Extremities: No Edema Skin: Warm Labs Laboratory Tests Test 07/31/17 23:30 08/01/17 04:00 08/01/17 04:30 08/02/17 08:30 Nasal Screen MRSA (PCR) Negative (Negative) White Blood Count 9.0 x10^3/uL (4.0-11.0) Red Blood Count 4.05 x10^6/uL (4.30-5.70) Hemoglobin 13.9 g/dL (13.0-17.5) Hematocrit 40.5 % (39.0-53.0) Mean Corpuscular Volume 100 fL (79-100) Mean Corpuscular Hemoglobin 34 pg (25-35) Mean Corpuscular Hemoglobin Concent 34 g/dL (31-37) Red Cell Distribution Width 13.7 % (11.5-14.5) Platelet Count 161 x10^3/uL (140-400) Neutrophils (%) (Auto) 75 % (31-73) Lymphocytes (%) (Auto) 12 % (24-48) Monocytes (%) (Auto) 8 % (0-9) Eosinophils (%) (Auto) 5 % (0-3) Basophils (%) (Auto) 0 % (0-3) Neutrophils # (Auto) 6.7 x10^3uL (1.8-7.7) Lymphocytes # (Auto) 1.1 x10^3/uL (1.0-4.8) Monocytes # (Auto) 0.7 x10^3/uL (0.0-1.1) Eosinophils # (Auto) 0.5 x10^3/uL (0.0-0.7) Basophils # (Auto) 0.0 x10^3/uL (0.0-0.2) Prothrombin Time 16.0 SEC (11.7-14.0) 13.9 SEC (11.7-14.0) Prothromb Time International Ratio 1.4 (0.8-1.1) 1.1 (0.8-1.1) Sodium Level 137 mmol/L (136-145) 137 mmol/L (136-145) Potassium Level 4.4 mmol/L (3.5-5.1) 3.6 mmol/L (3.5-5.1) Chloride Level 101 mmol/L (98-107) 101 mmol/L (98-107) Carbon Dioxide Level 25 mmol/L (21-32) 26 mmol/L (21-32) Anion Gap 11 (6-14) 10 (6-14) Blood Urea Nitrogen 16 mg/dL (8-26) 16 mg/dL (8-26) Creatinine 0.9 mg/dL (0.7-1.3) 0.9 mg/dL (0.7-1.3) Estimated GFR (Cockcroft-Gault) 82.7 82.7 Glucose Level 127 mg/dL (70-99) 107 mg/dL (70-99) Calcium Level 8.8 mg/dL (8.5-10.1) 8.7 mg/dL (8.5-10.1) Phosphorus Level 3.0 mg/dL (2.6-4.7) Magnesium Level 2.0 mg/dL (1.8-2.4) Thyroid Stimulating Hormone (TSH) 1.786 uIU/mL (0.358-3.74) BUN/Creatinine Ratio 18 (6-20) Total Bilirubin 1.4 mg/dL (0.2-1.0) Aspartate Amino Transf (AST/SGOT) 46 U/L (15-37) Alanine Aminotransferase (ALT/SGPT) 92 U/L (16-63) Alkaline Phosphatase 76 U/L (46-116) Total Protein 6.8 g/dL (6.4-8.2) Albumin 3.5 g/dL (3.4-5.0) Albumin/Globulin Ratio 1.1 (1.0-1.7) Laboratory Tests Test 08/02/17 08:30 Prothrombin Time 13.9 SEC (11.7-14.0) Prothromb Time International Ratio 1.1 (0.8-1.1) Sodium Level 137 mmol/L (136-145) Potassium Level 3.6 mmol/L (3.5-5.1) Chloride Level 101 mmol/L (98-107) Carbon Dioxide Level 26 mmol/L (21-32) Anion Gap 10 (6-14) Blood Urea Nitrogen 16 mg/dL (8-26) Creatinine 0.9 mg/dL (0.7-1.3) Estimated GFR (Cockcroft-Gault) 82.7 BUN/Creatinine Ratio 18 (6-20) Glucose Level 107 mg/dL (70-99) Calcium Level 8.7 mg/dL (8.5-10.1) Total Bilirubin 1.4 mg/dL (0.2-1.0) Aspartate Amino Transf (AST/SGOT) 46 U/L (15-37) Alanine Aminotransferase (ALT/SGPT) 92 U/L (16-63) Alkaline Phosphatase 76 U/L (46-116) Total Protein 6.8 g/dL (6.4-8.2) Albumin 3.5 g/dL (3.4-5.0) Albumin/Globulin Ratio 1.1 (1.0-1.7) Medications Active Scripts Medications Dose Route/Sig Max Daily Dose Days Date Category Zoloft (Sertraline Hcl) 100 Mg Tablet 100 Mg PO DAILY 07/08/16 Reported Impression . 1. Abnormal CT chest with a tiny questionable subsegmental thrombus in the right lower lobe pulmonary artery. The clinical significance of that is of questionable importance. However, since he has been short of breath for about a month and came in with a new onset atrial fibrillation, the possibility of him having a small pulmonary embolism 3-4 weeks earlier cannot be completely ruled out, and I would recommend treating this tiny pulmonary embolism with 4-6 weeks of anticoagulation. 2. New onset atrial fibrillation, which primarily is responsible for his dyspnea for the past 1 month .HR rate is now better controlled while on Cardizem drip. 3. History of obstructive sleep apnea, on home CPAP with good compliance. 4. Underlying obesity. 5. History of alcoholic liver disease. 6. History of tobacco use, probably underlying chronic obstructive pulmonary disease. 7. Urinary tract infection. Plan . 1. Continue full dose Lovenox and initiate Coumadin post cath 2. From a pulmonary standpoint, 4-6 weeks of anticoagulation would be reasonable. I will repeat CT chest in 4 weeks. After 4-6 weeks, the decision to continue anticoagulation will be up to Cardiology, if they want to continue for atrial fibrillation. 3. P.r.n. bronchodilators. 4. Antibiotics per PCP for UTI. 5. Continue CPAP at bedtime. 6. Repeat CT chest in 4 weeks. 7. venous Dopplers of lower extremities negative 8. Discussed with the patient's and discussed with CORAZON SCHERER MD Aug 02, 2017 13:05
[2017-08-02 16:00] VITALS: BP 117/81
[2017-08-02 20:00] VITALS: BP 96/76
[2017-08-02] MEDS: ZOLPIDEM 5 MG TABLET. PO PRN (21:05)
[2017-08-03] VITALS (7 sets, daily range): BP systolic 105–125; BP diastolic 61–98
[2017-08-03] MEDS: METOPROLOL TART IMMED RELEASE 25 MG TABLET. PO SCH ×3 (06:16→17:44)
[2017-08-03] MEDS: DOCUSATE SODIUM 100 MG CAPSULE. PO SCH ×2 (07:56→21:00)
[2017-08-03] MEDS: FUROSEMIDE 40 MG/4 ML VIAL. IVP SCH (07:59)
[2017-08-03] MEDS: SERTRALINE 50 MG TABLET. PO SCH (07:59)
--- NOTE | 2017-08-03 09:03 | PDOC ---
PULMONARY PROGRESS NOTES Subjective pt not more soa Vitals Vital Signs Date Time Temp Pulse Resp B/P (MAP) Pulse Ox O2 Delivery O2 Flow Rate FiO2 08/03/17 08:00 Room Air 08/03/17 08:00 97.8 87 22 106/92 (97) 96 97.8 ROS: No Nausea, No Chest Pain, No Abdominal Pain, No Increase Cough General: Alert, No acute distress Lungs: Clear Cardiovascular: S1 Abdomen: Soft Neuro Exam: Alert Extremities: No Edema Skin: Warm Labs Laboratory Tests Test 08/02/17 08:30 Prothrombin Time 13.9 SEC (11.7-14.0) Prothromb Time International Ratio 1.1 (0.8-1.1) Sodium Level 137 mmol/L (136-145) Potassium Level 3.6 mmol/L (3.5-5.1) Chloride Level 101 mmol/L (98-107) Carbon Dioxide Level 26 mmol/L (21-32) Anion Gap 10 (6-14) Blood Urea Nitrogen 16 mg/dL (8-26) Creatinine 0.9 mg/dL (0.7-1.3) Estimated GFR (Cockcroft-Gault) 82.7 BUN/Creatinine Ratio 18 (6-20) Glucose Level 107 mg/dL (70-99) Calcium Level 8.7 mg/dL (8.5-10.1) Total Bilirubin 1.4 mg/dL (0.2-1.0) Aspartate Amino Transf (AST/SGOT) 46 U/L (15-37) Alanine Aminotransferase (ALT/SGPT) 92 U/L (16-63) Alkaline Phosphatase 76 U/L (46-116) Total Protein 6.8 g/dL (6.4-8.2) Albumin 3.5 g/dL (3.4-5.0) Albumin/Globulin Ratio 1.1 (1.0-1.7) Medications Active Scripts Medications Dose Route/Sig Max Daily Dose Days Date Category Zoloft (Sertraline Hcl) 100 Mg Tablet 100 Mg PO DAILY 07/08/16 Reported Impression . 1. Abnormal CT chest with a tiny questionable subsegmental thrombus in the right lower lobe pulmonary artery. The clinical significance of that is of questionable importance. However, since he has been short of breath for about a month and came in with a new onset atrial fibrillation, the possibility of him having a small pulmonary embolism 3-4 weeks earlier cannot be completely ruled out, and I would recommend treating this tiny pulmonary embolism with 4-6 weeks of anticoagulation. 2. New onset atrial fibrillation, which primarily is responsible for his dyspnea for the past 1 month 3. History of obstructive sleep apnea, on home CPAP with good compliance. 4. Underlying obesity. 5. History of alcoholic liver disease. 6. History of tobacco use, probably underlying chronic obstructive pulmonary\ disease. 7. Urinary tract infection. Plan . [facility] today Coumadin or new agent to go home on Repeat CT in 6 weeks 6 min walk SHAY PIERCE MD Aug 03, 2017 09:03
--- NOTE | 2017-08-03 09:57 | PDOC ---
PROGRESS NOTES Chief Complaint Chief Complaint 1. New atrial fib RVF 2. SUbsegmental pulmonary filling defect, Small PE vs artifactual 3. Recoverd alcoholic 4. Ex smoker - [id number] yrs ago 5. Depression NOS 6. 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 History of Present Illness History of Present Illness Seen in iCU but CVC status Looks good, no inc in soa, no CP Tolerating BB started by cards thursday fine For LHC later 12 NN PLAN: LHC today CVC status Await [facility] COnt lovenox BID dose for now AC OP 4-6 weeks at least for the "small PE" Vitals Vitals Vital Signs Date Time Temp Pulse Resp B/P (MAP) Pulse Ox O2 Delivery O2 Flow Rate FiO2 08/03/17 08:00 Room Air 08/03/17 08:00 97.8 87 22 106/92 (97) 96 97.8 Physical Exam General: Alert, Oriented X3, Cooperative, No acute distress Lungs: Clear Abdomen: Normal bowel sounds, Soft, No tenderness, No hepatosplenomegaly, No masses Extremities: No clubbing, No cyanosis, No edema, Normal pulses, No tenderness/ swelling Skin: No rashes, No breakdown, No significant lesion Review of Systems Review of Systems denies 14 pt reviewed Comment Review of Relevant I have reviewed the following items yo (where applicable) has been applied. Labs Laboratory Tests Test 08/02/17 08:30 Prothrombin Time 13.9 SEC (11.7-14.0) Prothromb Time International Ratio 1.1 (0.8-1.1) Sodium Level 137 mmol/L (136-145) Potassium Level 3.6 mmol/L (3.5-5.1) Chloride Level 101 mmol/L (98-107) Carbon Dioxide Level 26 mmol/L (21-32) Anion Gap 10 (6-14) Blood Urea Nitrogen 16 mg/dL (8-26) Creatinine 0.9 mg/dL (0.7-1.3) Estimated GFR (Cockcroft-Gault) 82.7 BUN/Creatinine Ratio 18 (6-20) Glucose Level 107 mg/dL (70-99) Calcium Level 8.7 mg/dL (8.5-10.1) Total Bilirubin 1.4 mg/dL (0.2-1.0) Aspartate Amino Transf (AST/SGOT) 46 U/L (15-37) Alanine Aminotransferase (ALT/SGPT) 92 U/L (16-63) Alkaline Phosphatase 76 U/L (46-116) Total Protein 6.8 g/dL (6.4-8.2) Albumin 3.5 g/dL (3.4-5.0) Albumin/Globulin Ratio 1.1 (1.0-1.7) Microbiology 08/01/17 Urine Culture - Preliminary, Resulted 08/01/17 Urine Culture Result 1 (SPENSER) - Preliminary, Resulted Medications Current Medications Ondansetron HCl (Zofran) 4 mg PRN Q6HRS PRN IV NAUSEA/VOMITING, 1ST CHOICE; Start 07/31/17 at 19:30 Prochlorperazine Edisylate (Compazine) 10 mg PRN Q6HRS PRN IV NAUSEA/VOMITING, 2ND CHOICE Last administered on 08/01/17t 18:11; Start 07/31/17 at 19:30 Prochlorperazine (Compazine) 25 mg PRN Q12HR PRN ID NAUSEA/VOMITING; Start at 19:30 Al Hydroxide/Mg Hydroxide (Mylanta Plus Xs) 30 ml PRN Q3HRS PRN PO HEARTBURN / GAS; Start 07/31/17 at 19:30 Calcium Carbonate/ Glycine (Tums) 500 mg PRN Q3HRS PRN PO UPSET STOMACH; Start 07/31/17 at 19:30 Oxycodone HCl (Roxicodone) 5 mg PRN Q3HRS PRN PO BREAKTHROUGH PAIN; Start 07/31 at 19:30 Morphine Sulfate 1 mg PRN Q1HR PRN IV PAIN; Start 07/31/17 at 19:30 Ketorolac Tromethamine (Toradol) 15 mg PRN Q6HRS PRN IV PAIN; Start 07/31/17 at 19:30; Stop 08/05/17 at 19:29 Acetaminophen (Tylenol) 650 mg PRN Q6HRS PRN PO Headaches, Temp > 101.5F; Start 07/31/17 at 19:30 Ibuprofen (Motrin) 400 mg PRN Q6HRS PRN PO MILD PAIN; Start 07/31/17 at 19:30 Docusate Sodium (Colace) 100 mg BID PO ; Start 07/31/17 at 21:00 Magnesium Hydroxide (Milk Of Magnesia) 2,400 mg PRN Q12HR PRN PO CONSTIPATION; Start 07/31/17 at 19:30 Bisacodyl (Dulcolax Supp) 10 mg PRN DAILY PRN ID CONSTIPATION; Start 07/31/17 at 19:30 Ceftriaxone Sodium 1 gm/ Sodium Chloride 50 ml @ 100 mls/hr Q24H IV Last administered on 08/03/17 08:00; Start 08/01/17 at 09:00 Sertraline HCl (Zoloft) 100 mg DAILY PO Last administered on 08/03/17 07:59; Start 08/01/17 at 09:00 Ascorbic Acid (Vitamin C) 500 mg DAILY PO Last administered on 08/01/17 09:23 ; Start 08/01/17 at 09:00; Stop 08/01/17 at 10:30; Status DC Enoxaparin Sodium (Lovenox 120mg Syringe) 120 mg Q12HR SQ Last administered on 08/02/17 21:05; Start 07/31/17 at 21:00 Chlordiazepoxide (Librium) 25 mg PRN Q6HRS PRN PO ANXIETY / AGITATION; Start at 20:15 Diltiazem HCl 125 mg/Dextrose 125 ml @ 0 mls/hr CONT PRN IV SEE I/O RECORD Last administered on 07/31/17 20:37; Start 07/31/17 at 20:15 Zolpidem Tartrate (Ambien) 5 mg PRN QHS PRN PO INSOMNIA Last administered on 21:05; Start 07/31/17 at 20:15 Metoprolol Tartrate (Lopressor) 25 mg Q6HRS PO Last administered on 08/03/17 06:16; Start 08/01/17 at 07:30 Furosemide (Lasix) 40 mg DAILY IVP Last administered on 08/03/17 07:59; Start 08/01/17 at 09:00 Potassium Chloride (Klor-Con) 40 meq 1X ONCE PO Last administered on 11:33; Start 08/02/17 at 11:30; Stop 08/02/17 at 11:31; Status DC Active Scripts Active Reported Zoloft (Sertraline Hcl) 100 Mg Tablet 100 Mg PO DAILY Vitals/I & O Vital Sign - Last 24 Hours 08/02/17 08/02/17 08/02/17 08/02/17 11:32 12:00 16:00 18:03 Temp 98.7 97.6 98.7 97.6 Pulse 120 106 107 108 Resp 20 18 B/P (MAP) 112/84 107/84 (92) 117/81 (93) 129/82 Pulse Ox 97 96 O2 Delivery Room Air Room Air 08/02/17 08/02/17 08/02/17 08/03/17 19:32 20:00 23:48 00:00 Temp 98.2 97.8 98.2 97.8 Pulse 82 93 93 Resp 16 20 B/P (MAP) 96/76 (83) 114/86 114/86 (95) Pulse Ox 97 96 O2 Delivery Room Air Room Air Room Air 08/03/17 08/03/17 08/03/17 08/03/17 04:00 06:16 08:00 08:00 Temp 97.9 97.8 97.9 97.8 Pulse 78 98 87 Resp 14 22 B/P (MAP) 114/70 (85) 119/87 106/92 (97) Pulse Ox 96 96 O2 Delivery Room Air Room Air Room Air O2 Flow Rate Intake and Output 08/03/17 08/03/17 08/04/17 14:59 22:59 06:59 Output Total 800 ml Balance -800 ml MARISSA LILLY MD Aug 03, 2017 09:57
[2017-08-03] MEDS ORDERED: IOHEXOL 300 MG/ML 100ML VIAL. ONE (10:53)
[2017-08-03] MEDS ORDERED: LIDOCAINE 1% Multi-Dose 20 ML VIAL. ONE (10:53)
[2017-08-03] MEDS ORDERED: MIDAZOLAM HCL/PF 2 MG/2 ML VIAL. ONE (11:18)
[2017-08-03] MEDS ORDERED: fentaNYL PF VIAL 100 MCG/2 ML VIAL ONE (11:19)
[2017-08-03] MEDS ORDERED: NITROGLYCERIN 200 MCG/2 ML SYRINGE FOR CATH/VASC LAB. ONE (11:19)
[2017-08-03] MEDS ORDERED: HEPARIN for IV BOLUS 10,000 UNIT/10 ML VIAL. ONE (11:19)
[2017-08-03] MEDS ORDERED: VERAPAMIL 5 MG/2 ML VIAL. ONE (11:19)
[2017-08-03] MEDS ORDERED: VERAPAMIL 5 MG/2 ML VIAL. IART ONE (11:30)
[2017-08-03] MEDS ORDERED: HEPARIN for IV BOLUS 10,000 UNIT/10 ML VIAL. IART ONE (11:30)
[2017-08-03] MEDS ORDERED: IOHEXOL 300 MG/ML 100ML VIAL. IART ONE (11:30)
[2017-08-03] MEDS ORDERED: NITROGLYCERIN 200 MCG/2 ML SYRINGE FOR CATH/VASC LAB. IART ONE (11:30)
[2017-08-03] MEDS ORDERED: MIDAZOLAM HCL/PF 2 MG/2 ML VIAL. IV ONE (11:30)
[2017-08-03] MEDS ORDERED: CONTRAST GIVEN MC PRN (11:30)
[2017-08-03] MEDS ORDERED: fentaNYL PF VIAL 100 MCG/2 ML VIAL IV ONE (11:30)
[2017-08-03] MEDS ORDERED: LIDOCAINE 2% 20 ML VIAL. IJ ONE (12:15)
[2017-08-03] MEDS ORDERED: ANTI-COAG MONITOR BY PHARMACY. MC PRN (16:45)
[2017-08-03] MEDS: ZOLPIDEM 5 MG TABLET. PO PRN (21:41)
[2017-08-03] MEDS: APIXABAN 5 MG TABLET. PO SCH (21:41)
[2017-08-04] VITALS: BP 120/71
[2017-08-04] MEDS: METOPROLOL TART IMMED RELEASE 25 MG TABLET. PO SCH ×3 (00:11→11:57)
[2017-08-04 04:00] VITALS: BP 95/73
[2017-08-04 08:00] VITALS: BP 118/85
[2017-08-04] MEDS: DOCUSATE SODIUM 100 MG CAPSULE. PO SCH (08:49)
[2017-08-04] MEDS: SERTRALINE 50 MG TABLET. PO SCH (08:50)
[2017-08-04] MEDS: FUROSEMIDE 40 MG/4 ML VIAL. IVP SCH (08:50)
[2017-08-04] MEDS: APIXABAN 5 MG TABLET. PO SCH (08:50)
[2017-08-04] MEDS ORDERED: AMIODARONE HCL 200 MG TABLET. PO SCH (09:00)
[2017-08-04] MEDS ORDERED: METO-247 PO (10:38)
--- NOTE | 2017-08-04 10:42 | PDOC3 ---
Discharge Summary Visit Information Date of Admission: Jul 31, 2017 Date of Discharge: Aug 04, 2017 Admitting Diagnosis Comment: 1. New atrial fib RVF 2. SUbsegmental pulmonary filling defect, Small PE vs artifactual 3. Recoverd alcoholic 4. Ex smoker - [id number] yrs ago 5. Depression NOS 6. 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 Brief Hospital Course Allergies Allergies Coded Allergies Type Severity Reaction Last Updated Verified venlafaxine Allergy Intermediate Rash 07/08/16 Yes Vital Signs Vital Signs Date Time Temp Pulse Resp B/P (MAP) Pulse Ox O2 Delivery O2 Flow Rate FiO2 08/04/17 08:50 89 118/85 08/04/17 08:09 Room Air 2.0 08/04/17 08:00 97.7 20 94 97.7 Brief Hospital Course Mr. Kan is a 72 old male very distant smoking hx and was an alcoholic but that was in the distant past admitted for atrial fib RVR NEW - hence transferred from [place] to here, ICU on rate controlling gtt, HAd LHC done showed 50-60% lad dse, no stents, given cardiac meds, ALso on CT showed small subsegmental PE, could be artifactual, neg dopplers, advised AC by pulmo 4 -6 week,s. Cards has recommneded eliquis at elast 30 days, I havve written that 5 BID. ALso new cardiac meds are amio 200 PO qD and metoprolol 100 ER Seen and examined time 40% cumulative Discharge Information Condition at Discharge: Improved, Stable Disposition/Orders: D/C to Home Scheduled Sertraline Hcl (Zoloft), 100 MG PO DAILY, (Reported) Discontinued Medications Ascorbic Acid (Vitamin C), 1,000 MG PO, (Reported) Insulin Aspart (Novolog Flexpen), 1 UNIT SQ, (Reported) Ipratropium/Albuterol Sulfate (Duoneb 0.5-3(2.5) Mg/3 Ml), 3 ML NEB QID, ( Reported) MARISSA LILLY MD Aug 04, 2017 10:42
--- NOTE | 2017-08-04 11:30 | CARD ---
APPROVED REPORT Procedure(s) performed: CORONARY ANGIOS ONLY MODERATE SEDATION: 36 MINUTES HISTORY The patient is a 72 year-old male with a history of : hypertension. INDICATION The indication(s) include : arrhythmia, dyspnea. PROCEDURE NARRATIVE The patient was brought electively to the cardiac catheterization lab. A timeout was performed confi rming the patient's name, date of , procedure, and site of procedure. All necessary personnel w ere wearing the appropriate protective equipment and radiation monitor devices. After explaining the risks and benefits of the procedure and alternatives, informed consent was obtained. (See nursing no mohan for medications administered). The right wrist was sterilely prepped and draped in the usual fas hion. The right wrist was infiltrated with 1 mL of 2% lidocaine for subcutaneous anesthesia. A 6 Fr ench Terumo glide sheath was inserted into the right radial artery without difficulty. Right and lef t coronary angiography was performed using a 6Fr 110cm Vinh catheter. All catheter exchanges and a dvancements were performed over a guidewire. At case completion the right radial sheath was removed and a Terumo radial band was applied with 13 ml of air. The patient tolerated the procedure well and there were no immediate complications. HEMODYNAMICS: AO: 134/86 CORONARY ANGIOGRAPHY: LM is a large caliber vessel with normal angiographic appearance. LAD is a large caliber vessel with a proximal 50-60% stenosis. D1 is a moderate caliber vessel with a mid 20% stenosis. Ramus is a small caliber vessel with normal angiographic appearance. LCx is a moderate caliber non-dominant vessel with normal angiographic appearance. OM1 is a moderate caliber vessel with normal angiographic appearance. RCA is a large caliber dominant vessel with mild luminal irregularities of up to 30%. RPDA and RPL are moderate caliber vessels with normal angiographic appearance. Conclusion 1. One vessel coronary artery disease. Recommendations 1. Cardiomyopathy out of proportion to coronary disease. Cardiomyopathy likely related to history of alcohol abuse and afib. 2. Plan for TONJA/CVN after HF optimization and then if after achieving SR, the patient has persistent symptoms, could then consider PCI of the LAD as needed.
--- NOTE | 2017-08-04 11:40 | PDOC ---
CARDIO Progress Notes Date and Time Date of Service 08/04/2017 Time of Evaluation 1130 Subjective Subjective: No Chest Pain, No shortness of breath, No Palpitations, No Dizziness Vitals Vitals Vital Signs Date Time Temp Pulse Resp B/P (MAP) Pulse Ox O2 Delivery O2 Flow Rate FiO2 08/04/17 08:50 89 118/85 08/04/17 08:09 Room Air 2.0 08/04/17 08:00 97.7 20 94 97.7 Weight Weight [ ] Input and Output Intake and Output Intake and Output 08/05/17 07:00 Intake Total 100 ml Output Total 450 ml Balance -350 ml Intake Oral 100 ml Output Urine Total 450 ml Microbiology Micro Microbiology 08/01/17 Urine Culture - Final, Complete 08/01/17 Urine Culture Result 1 (SPENSER) - Final, Complete Physical Exam HEENT: Neck Supple W Full Motion Chest: Symmetric LUNGS: Clear to Auscultation Heart: S1S2, RRR (SR) Abdomen: Soft N/T Extremities: No Edema, No Calf Tenderness Neurology: alert, oriented, follow commands Other Exams right wrist arteriotomy site intact, neurovascular status intact Assessment Assessment 1. New onset acute on chronic diastolic/systolic CHF 2. Persistent atrial fibrillation: rate controlled 3. 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 EF 15-20% with severe global hypokinesis 4. Nonobstructive CAD: LAD 50-60% lesion s/p LHC 5. Alcoholism Recommendations 1. Continue with secondary prevention 2. Pt hurrying up to go for a convention. Will schedule for outpt TONJA/ CVN when he comes back from trip. 3. discussed with primary fire control system installer and will arrange for event monitor prior to DC. 4. Home meds as follows: amiodarone 200 mg, lisinopril 2.5 mg, lipitor 20 mg, toprol XL 100 mg, lasix 40 mg, ECASA 81 mg, and K-dur 20 meq all daily and eliquis 5 mg bid. 5. Discussed cutting back on ETOH. 6. Discussed with staff in regards to BP monitoring, weight, FR and to provide pt education in regards to parameter. SHITAL SANCHEZ APRN Aug 04, 2017 11:40
[2017-08-04 11:58] VITALS: BP 105/84
[2017-08-04] MEDS ORDERED: ASPIRIN ENTERIC COATED 81 MG TABLET.DR. PO SCH (12:00)
[2017-08-04] MEDS ORDERED: LISINOPRIL 2.5 MG TABLET PO SCH (12:00)
[2017-08-04] MEDS ORDERED: POTASSIUM CHLORIDE 20 MEQ TABLET.ER. PO SCH (12:00)
[2017-08-04 12:49] LABS: CALCIUM 9.3 mg/dL (8.5-10.1); CHOLESTEROL/HDL RATIO 4.3; CREATININE 0.9 mg/dL (0.7-1.3); GFR 82.7; POTASSIUM 3.5 mmol/L (3.5-5.1)
--- NOTE | 2017-08-04 12:59 | PDOC ---
PULMONARY PROGRESS NOTES Subjective pt not more soa Vitals Vital Signs Date Time Temp Pulse Resp B/P (MAP) Pulse Ox O2 Delivery O2 Flow Rate FiO2 08/04/17 11:58 108 22 105/84 (91) 93 Room Air 08/04/17 08:09 2.0 08/04/17 08:00 97.7 97.7 ROS: No Nausea, No Chest Pain, No Abdominal Pain, No Increase Cough General: Alert, No acute distress Lungs: Clear Cardiovascular: S1 Abdomen: Soft Neuro Exam: Alert Extremities: No Edema Skin: Warm Labs Laboratory Tests Test 08/04/17 11:55 Sodium Level 139 mmol/L (136-145) Potassium Level 3.5 mmol/L (3.5-5.1) Chloride Level 100 mmol/L (98-107) Carbon Dioxide Level 28 mmol/L (21-32) Anion Gap 11 (6-14) Blood Urea Nitrogen 19 mg/dL (8-26) Creatinine 0.9 mg/dL (0.7-1.3) Estimated GFR (Cockcroft-Gault) 82.7 Glucose Level 103 mg/dL (70-99) Calcium Level 9.3 mg/dL (8.5-10.1) Magnesium Level 2.1 mg/dL (1.8-2.4) Triglycerides Level 97 mg/dL (0-150) Cholesterol Level 146 mg/dL (0-200) LDL Cholesterol, Calculated 93 mg/dL (0-100) VLDL Cholesterol, Calculated 19 mg/dL (0-40) Non-HDL Cholesterol Calculated 112 mg/dL (0-129) HDL Cholesterol 34 mg/dL (40-60) Cholesterol/HDL Ratio 4.3 Laboratory Tests Test 08/04/17 11:55 Sodium Level 139 mmol/L (136-145) Potassium Level 3.5 mmol/L (3.5-5.1) Chloride Level 100 mmol/L (98-107) Carbon Dioxide Level 28 mmol/L (21-32) Anion Gap 11 (6-14) Blood Urea Nitrogen 19 mg/dL (8-26) Creatinine 0.9 mg/dL (0.7-1.3) Estimated GFR (Cockcroft-Gault) 82.7 Glucose Level 103 mg/dL (70-99) Calcium Level 9.3 mg/dL (8.5-10.1) Magnesium Level 2.1 mg/dL (1.8-2.4) Triglycerides Level 97 mg/dL (0-150) Cholesterol Level 146 mg/dL (0-200) LDL Cholesterol, Calculated 93 mg/dL (0-100) VLDL Cholesterol, Calculated 19 mg/dL (0-40) Non-HDL Cholesterol Calculated 112 mg/dL (0-129) HDL Cholesterol 34 mg/dL (40-60) Cholesterol/HDL Ratio 4.3 Medications Active Scripts Medications Dose Route/Sig Max Daily Dose Days Date Category Zoloft (Sertraline Hcl) 100 Mg Tablet 100 Mg PO DAILY 07/08/16 Reported Impression . 1. Abnormal CT chest with a tiny questionable subsegmental thrombus in the right lower lobe pulmonary artery. The clinical significance of that is of questionable importance. However, since he has been short of breath for about a month and came in with a new onset atrial fibrillation, the possibility of him having a small pulmonary embolism 3-4 weeks earlier cannot be completely ruled out, and I would recommend treating this tiny pulmonary embolism with 4-6 weeks of anticoagulation. 2. New onset atrial fibrillation, which primarily is responsible for his dyspnea for the past 1 month 3. History of obstructive sleep apnea, on home CPAP with good compliance. 4. Underlying obesity. 5. History of alcoholic liver disease. 6. History of tobacco use, probably underlying chronic obstructive pulmonary\ disease. 7. Urinary tract infection. Plan . [facility] today Coumadin or new agent to go home on Repeat CT in 6 weeks 6 min walk SHAY PIERCE MD Aug 04, 2017 12:59
[2017-08-04] MEDS ORDERED: ATORVASTATIN CALCIUM 20 MG TABLET PO SCH (21:00)
[2017-08-05] MEDS ORDERED: FUROSEMIDE 40 MG TABLET. PO SCH (09:00)
[2017-08-31] MEDS ORDERED: ATOR20TA PO (09:22)
[2017-08-31] MEDS ORDERED: FURO-68 PO (09:22)
[2017-08-31] MEDS ORDERED: LISI2.5T PO (09:22)
[2017-08-31] MEDS ORDERED: POTA10CA2 PO (09:23)
[2017-08-31] MEDS ORDERED: APIX5TAB PO (09:24)
[2017-08-31] MEDS ORDERED: AMIO200T2 PO (09:24)
[2017-08-31] MEDS ORDERED: ASPI-482 PO (09:24)
[2017-08-31] MEDS ORDERED: SERT100T PO (09:43)
== END 2017-08-04 15:15 | disposition home or self-care (01) | DRG 286 ==
LOC: 1 WEST ICU 19:10
PROVIDERS: ADMIT Internal Medicine; ATTEND Internal Medicine
PROC: B2111ZZ Fluoroscopy of Multiple Coronary Arteries using Low Osmolar Contrast (ICD-10-PCS; principal; 2017-08-04)
DX: I50.43 Acute on chronic combined systolic (congestive) and diastolic (congestive) heart failure (principal); I26.99 Other pulmonary embolism without acute cor pulmonale; I48.1 Persistent atrial fibrillation; N39.0 Urinary tract infection, site not specified; I42.6 Alcoholic cardiomyopathy; E66.9 Obesity, unspecified; F10.20 Alcohol dependence, uncomplicated; J44.9 Chronic obstructive pulmonary disease, unspecified; F32.9 Major depressive disorder, single episode, unspecified; G47.33 Obstructive sleep apnea (adult) (pediatric); I25.10 Atherosclerotic heart disease of native coronary artery without angina pectoris; Z79.4 Long term (current) use of insulin; Z79.899 Other long term (current) drug therapy; Z87.891 Personal history of nicotine dependence; Z88.8 Allergy status to other drugs, medicaments and biological substances; Z68.32 Body mass index [BMI] 32.0-32.9, adult; Z82.49 Family history of ischemic heart disease and other diseases of the circulatory system
CPT/HCPCS: 36415; 80048; 80053; 80061; 82310; 83735; 84100; 84443; 85025; 85610; 87086; 87641; 93005; 93454; 93970; 94620; 99152; 99153; C1769; C1892; J0696; J0780; J1644; J1650; J1940; J2250; J3010; J3490; Q9967; J2001

== ENCOUNTER → 2017-12-14 | Day surgery (SDC) | payer MEDICARE, OTHER ==
[~2017-12-14] MED LIST changes: -ASCO10002 PO; +BENZOCAINE ONE 20% MUCOSAL SPRAY.; +BENZOCAINE ONE 20% MUCOSAL SPRAY. MM; +ETOMIDATE 20 MG/10 ML VIAL. IV; +HYDROmorphone 2 MG/ML VIAL IV; +IV RINGERS,LACTATED 1000ML 1,000 ML IV; +LIDOCAINE 1% PF 2 ML VIAL. ID; +LIDOCAINE 1% PF 5 ML VIAL.; +LIDOCAINE 2% TOPICAL JELLY 5GM TUBE. TP; +LIDOCAINE 2% VISCOUS 15 ML SOLUTION.; +LIDOCAINE 2% VISCOUS 15 ML SOLUTION. SWSW; +MIDAZOLAM HCL/PF 2 MG/2 ML VIAL. IV; +MORPHINE SULFATE 2 MG/ML DISP.SYRIN. IV; +ONDANSETRON PF 4 MG/2 ML VIAL. IV; +PHENYLEPHRINE in 0.9% NACL PF 1 MG/10 ML SYRINGE. IV; +PROCHLORPERAZINE 10 MG/2 ML VIAL. IV; +PROPOFOL 0 ML IV; -SERT100T PO; +fentaNYL PF VIAL 100 MCG/2 ML VIAL IV
[2017-12-14] MEDS: IV RINGERS,LACTATED 1000ML 1,000 ML IV ×2 (09:53)
[2017-12-14 10:17] LABS: POTASSIUM 3.9 mmol/L (3.5-5.1)
[2017-12-14 10:17] LABS: MAGNESIUM 1.9 mg/dL (1.8-2.4)
== END | disposition home or self-care (01) ==
LOC: SURG 08:54
DX: I48.91 Unspecified atrial fibrillation (principal); I35.1 Nonrheumatic aortic (valve) insufficiency; I25.10 Atherosclerotic heart disease of native coronary artery without angina pectoris; I10 Essential (primary) hypertension; F41.9 Anxiety disorder, unspecified; F32.9 Major depressive disorder, single episode, unspecified; Z88.8 Allergy status to other drugs, medicaments and biological substances; Z87.01 Personal history of pneumonia (recurrent)
CPT/HCPCS: 36415; 83735; 84132; 92960; 93005; 93312; 93325; 99152; 99153; J2370; J2704

== ENCOUNTER 2018-01-18 10:15 | Day surgery (SDC) | payer MEDICARE, OTHER ==
[~2018-01-18 10:15] MED LIST changes: -BENZOCAINE ONE 20% MUCOSAL SPRAY.; -BENZOCAINE ONE 20% MUCOSAL SPRAY. MM; -ETOMIDATE 20 MG/10 ML VIAL. IV; -LIDOCAINE 1% PF 5 ML VIAL.; -LIDOCAINE 2% TOPICAL JELLY 5GM TUBE. TP; -LIDOCAINE 2% VISCOUS 15 ML SOLUTION.; -LIDOCAINE 2% VISCOUS 15 ML SOLUTION. SWSW; -MIDAZOLAM HCL/PF 2 MG/2 ML VIAL. IV; -PHENYLEPHRINE in 0.9% NACL PF 1 MG/10 ML SYRINGE. IV; -PROPOFOL 0 ML IV
[2018-01-18] MEDS ORDERED: PROPOFOL 20 ML IV (11:27)
== END 2018-01-18 13:51 | disposition home or self-care (01) ==
LOC: SURG 10:15
DX: I48.91 Unspecified atrial fibrillation (principal); I42.9 Cardiomyopathy, unspecified; I25.10 Atherosclerotic heart disease of native coronary artery without angina pectoris; E78.00 Pure hypercholesterolemia, unspecified; I10 Essential (primary) hypertension; G47.30 Sleep apnea, unspecified; F41.9 Anxiety disorder, unspecified; F32.9 Major depressive disorder, single episode, unspecified; F10.21 Alcohol dependence, in remission; F17.210 Nicotine dependence, cigarettes, uncomplicated; Z88.8 Allergy status to other drugs, medicaments and biological substances
CPT/HCPCS: 92960; 93005; J2704

== ENCOUNTER 2018-08-17 06:30 | Outpatient (CLI) | payer MEDICARE, OTHER ==
[~2018-08-17] VITALS: Ht 193 cm; Wt 120.2 kg
[2018-08-17] VITALS (14 sets, daily range): BP systolic 88–118; BP diastolic 58–77
[~2018-08-17 06:30] MED LIST changes: +AMIO200T4 PO; +APIX5TAB PO; +ASCO10002 PO; +ASPI-482 PO; +ATOR20TA PO; +FURO-68 PO; -HYDROmorphone 2 MG/ML VIAL IV; +INSU100I17 SQ; +IPRA3AMP29 NEB; -IV RINGERS,LACTATED 1000ML 1,000 ML IV; -LIDOCAINE 1% PF 2 ML VIAL. ID; +LISI2.5T PO; +METO-247 PO; -MORPHINE SULFATE 2 MG/ML DISP.SYRIN. IV; -ONDANSETRON PF 4 MG/2 ML VIAL. IV; +POTA10CA2 PO; -PROCHLORPERAZINE 10 MG/2 ML VIAL. IV; +SERT100T PO; -fentaNYL PF VIAL 100 MCG/2 ML VIAL IV
[2018-08-17] MEDS ORDERED: METO-239 PO (06:54)
[2018-08-17] MEDS ORDERED: IODIXANOL 320 MG/ML 100 ML VIAL. ONE (07:06)
[2018-08-17] MEDS ORDERED: LIDOCAINE 1% PF 2 ML VIAL. ONE (07:06)
[2018-08-17] MEDS ORDERED: LIDOCAINE 1% Multi-Dose 50 ML VIAL. ONE (07:12)
[2018-08-17 07:18] LABS: HEMATOCRIT 45.3 % (39.0-53.0); HEMOGLOBIN 15.4 g/dL (13.0-17.5); RED BLOOD COUNT 4.57 x10^6/uL (4.30-5.70); RED CELL DISTRIBUTION WIDTH 13.9 % (11.5-14.5); WHITE BLOOD COUNT 5.1 x10^3/uL (4.0-11.0)
[2018-08-17 07:24] LABS: CALCIUM 9.1 mg/dL (8.5-10.1)
[2018-08-17 07:33] LABS: PROTHROMBIN TIME PATIENT 13.6 SEC (11.7-14.0)
[2018-08-17] MEDS ORDERED: fentaNYL PF VIAL 100 MCG/2 ML VIAL ONE (07:36)
[2018-08-17] MEDS ORDERED: MIDAZOLAM HCL/PF 2 MG/2 ML VIAL. ONE (07:36)
[2018-08-17] MEDS ORDERED: HEPARIN for IV BOLUS 10,000 UNIT/10 ML VIAL. ONE (08:17)
[2018-08-17] MEDS ORDERED: MIDAZOLAM HCL/PF 2 MG/2 ML VIAL. IV ONE (08:45)
[2018-08-17] MEDS ORDERED: HEPARIN for IV BOLUS 10,000 UNIT/10 ML VIAL. IV ONE (08:45)
[2018-08-17] MEDS ORDERED: NITROGLYCERIN 200 MCG/2 ML SYRINGE FOR CATH/VASC LAB. ICAR ONE (08:45)
[2018-08-17] MEDS ORDERED: LIDOCAINE 1% Multi-Dose 50 ML VIAL. INJ ONE (08:45)
[2018-08-17] MEDS ORDERED: CONTRAST GIVEN. MC PRN (08:45)
[2018-08-17] MEDS ORDERED: fentaNYL PF VIAL 100 MCG/2 ML VIAL IV ONE (08:45)
[2018-08-17] MEDS ORDERED: IV NORMAL SALINE 500ML BAG 500 ML IV ONE (08:45)
[2018-08-17] MEDS ORDERED: IODIXANOL 320 MG/ML 100 ML VIAL. IART ONE (08:45)
--- NOTE | 2018-08-17 08:58 | PDOC ---
Provider Note Provider Note CARDIOLOGY H&P HPI: 73 y.o male with prior Afib, HTN presenting for evaluation of known CAD. He had prior 70% LAD stenosis which was felt to not be the culprit for his cardiomyopathy. He has had failed cardioversions and has persistent cardiomyopathy. To rule out ischemic component, he was brought back to the lab for an iFR assessment of his LAD lesion. He reports mild fatigue but no chest pain, no orthopnea or PND. Pmxh: Afib, HTN CAD Non-ischemic CMP Socx: , no alcohol, illicit drug use. Retired. Famhx: [place] ALL: Venlafexine Meds: See DEC ROS: Negative for 08/15 systems reviewed unless otherwise mentioned above in HPI. GEN.: No apparent distress. Alert and oriented. HEENT: Head is normocephalic, atraumatic NECK: Supple. LUNGS: Clear to auscultation. HEART: irr irr, S1, S2 present. Peripheral pulses intact ABDOMEN: Soft, nontender. Positive bowel sounds. EXTREMITIES: Without any cyanosis. NEUROLOGIC: Normal speech, normal tone PSYCHIATRIC: Normal affect, normal mood. SKIN: No ulcerations labs reviewed - No acute abn Impression: 1. Persistent CMP (non-ischemic)> compensated systolic heart failure 2. Intermediate CAD Plan: Cath with iFR. r/b/a discussed with patient. ROSALIA BRYANT MD Aug 17, 2018 08:58
[2018-08-17] MEDS ORDERED: 0.9 % SODIUM CHLORIDE 10 ML DISP.SYRIN. IV PRN (09:30)
[2018-08-17] MEDS ORDERED: NITROGLYCERIN SUBLINGUAL 0.4 MG BOTTLE OF 25. SL PRN (09:30)
--- NOTE | 2018-08-18 17:24 | CARD ---
MR#: [id number] Date of Study: 08/17/2018 Ordering Physician: ROSALIA ELIZABETH, Referring Physician: ROSALIA ELIZABETH, Tech: RT Laney (R) APPROVED REPORT Technologist: RT Laney (R) Nurse: Emmy Allison R.N. Procedure(s) performed: 43 mins sedation [facility], Coronary angiography, iFR of the LAD HISTORY The patient is a 73 year-old male with a history of : coronary artery disease. INDICATION The indication(s) include : dyspnea. PROCEDURE NARRATIVE After explaining the risks and benefits of the procedure and alternatives, informed consent was obtai odilon. The patient was brought electively to the cardiac catheterization lab in a fasting state. A sana eout was performed confirming the patient's name, date of , procedure, and site of procedure. A ll necessary personnel were wearing the appropriate protective equipment and radiation monitor device s. (See nursing notes for medications administered). The right groin was sterilely prepped and drap ed in the usual fashion. The right groin was infiltrated with 10 mL of 2% lidocaine for subcutaneous anesthesia. A 6 F sheath was inserted into the right femoral artery without difficulty. Right and left coronary angiography was performed using a JR4 and JL4 catheter. Left ventricular end diastolic pressure was obtained with a pigtail catheter and pullback was performed after left ventriculography . HEMODYNAMICS: AO: 110/80 LVEDP 8 mm Hg No gradient on LV to aortic pullback. LEFT VENTRICULOGRAM: EF 40% *Global hypokinesis. *No significant mitral regurgitation or aortic insufficiency. CORONARY ANGIOGRAPHY: LM is a large caliber vessel with normal angiographic appearance. LAD is a large caliber vessel with a proximal 60-70% stenosis. D1 is a small to moderate caliber vessel with normal angiographic appearance. Ramus is a moderate caliber vessel with normal angiographic appearance. LCx is a small caliber non-dominant vessel with normal angiographic appearance. OM1 is a moderate caliber vessel with normal angiographic appearance. RCA is a large caliber dominant vessel with mild approximately 30% diffuse disease. INTERVENTIONAL TECHNIQUE: Due to the intermediate stenosis in the LAD an IFR study was performed to assess its significance. He darnell was used for anticoagulation. Through a 6 [place] EBU 4.0 guide catheter a 0.014 inch pressure w gene was advanced to the distal LAD after appropriate normalization. An IFR value of 0.93 was obtained after intracoronary nitroglycerin administration. Due to lack of any significant ischemia further in tervention was deferred. Post IFR angiography revealed no evidence of guide or wire-related competiti ons. The patient tolerated the procedure well. All catheter exchanges and advancements were performed over a guidewire. At case completion the righ t femoral sheath was removed and hemostasis was achieved with an Angioseal Device after limited femor al angiography confirmed adequate vessel size and anatomy. There were no acute complications. Conclusion 1. Single vessel coronary artery disease in the LAD. 2. Moderate LV dysfunction. EF 40% 3. Negative IFR of the LAD lesion. Recommendations Aggressive Medical Therapy Signed by : Rosalia Elizabeth, Electronically Approved : 08/18/2018 17:23:40
== END 2018-08-17 12:15 | disposition home or self-care (01) ==
LOC: CCL 06:30
PROVIDERS: ATTEND Internal Medicine Cardiovascular Disease
DX: I25.10 Atherosclerotic heart disease of native coronary artery without angina pectoris (principal); I42.9 Cardiomyopathy, unspecified; I10 Essential (primary) hypertension; I48.91 Unspecified atrial fibrillation; Z88.8 Allergy status to other drugs, medicaments and biological substances; Z79.01 Long term (current) use of anticoagulants; Z79.82 Long term (current) use of aspirin; Z79.899 Other long term (current) drug therapy
CPT/HCPCS: 36415; 80048; 85027; 85610; 85730; 93458; 93571; 99152; 99153; C1769; C1887; C1892; J1644; J2250; J3010; J3490; J7040; Q9967; C1771; G0269

== ENCOUNTER → 2018-12-07 | Outpatient (CLI) | payer MEDICARE, OTHER ==
[2018-08-17 11:39] VITALS: BP 105/73
[~2018-12-07] MED LIST changes: +METO-239 PO
--- NOTE | 2018-12-08 02:57 | RAD ---
EXAM: MUGA scan. HISTORY: Atrial fibrillation. Preoperative planning. COMPARISON: None. FINDINGS: Gated scintigraphic cardiac images were obtained after the intravenous administration of 25 mCi technetium 99m UltraTag red blood cells. The left ventricular ejection fraction is calculated at 28.9%. Heart rate was elevated at 133 bpm. IMPRESSION: 1. Left ventricular ejection fraction 28.9%. Electronically signed by: Vero Harmon MD (12/08/2018 2:52 AM) [facility]
== END | disposition home or self-care (01) ==
LOC: NM 08:30
PROVIDERS: ATTEND Internal Medicine Cardiovascular Disease
DX: I42.9 Cardiomyopathy, unspecified (principal)
CPT/HCPCS: 78472; 96374; A9560

== ENCOUNTER 2019-01-18 11:20 | Inpatient (IN) | payer MEDICARE, OTHER ==
[~2019-01-18] VITALS: Ht 193 cm; Wt 120.9 kg
[~2019-01-18 11:20] MED LIST changes: +HYDROmorphone 2 MG/ML VIAL IV PRN; +IV RINGERS,LACTATED 1000ML 1,000 ML IV SCH; +LIDOCAINE 1% PF 2 ML VIAL. ID PRN; +MORPHINE SULFATE 2 MG/ML VIAL. IV PRN; +ONDANSETRON PF 4 MG/2 ML VIAL. IV PRN; +PROCHLORPERAZINE 10 MG/2 ML VIAL. IV PRN; +fentaNYL PF VIAL 100 MCG/2 ML VIAL IV PRN
[2019-01-18 11:51] LABS: HEMATOCRIT 46.5 % (39.0-53.0); HEMOGLOBIN 15.5 g/dL (13.0-17.5); RED BLOOD COUNT 4.65 x10^6/uL (4.30-5.70); RED CELL DISTRIBUTION WIDTH 13.9 % (11.5-14.5); WHITE BLOOD COUNT 5.8 x10^3/uL (4.0-11.0)
[2019-01-18 11:59] LABS: PROTHROMBIN TIME PATIENT 13.2 SEC (11.7-14.0)
--- NOTE | 2019-01-18 12:22 | EKG ---
[facility] [address] [place] [address] Test Date: 2019-01-18 Test Time: 12:17:16 Pat Name: SALAS GREENE Department: Room: 263 1 Gender: M Butcher'S Assistant: BEVERLY : 1945 Requested By: ROSALIA BRYANT Order Number: [id number] Reading MD: Rosalia Bryant MD Measurements Intervals [place] Rate: 92 P: PA: QRS: -30 QRSD: 90 T: 55 QT: 342 QTc: 428 Interpretive Statements ATRIAL FLUTTER RATE CONTROLLED NON-SPECIFIC ST/T CHANGES Electronically Signed On 01-21-2019 16:09:23 CDT by Rosalia Bryant MD
[2019-01-18 12:25] LABS: CALCIUM 8.9 mg/dL (8.5-10.1); CREATININE 0.9 mg/dL (0.7-1.3); GFR 82.3; POTASSIUM 4.5 mmol/L (3.5-5.1)
[2019-01-18 12:30] VITALS: BP 158/89
[2019-01-18] MEDS ORDERED: LIDOCAINE 2%/EPI 1:100,000 20 ML VIAL. ONE (12:49)
[2019-01-18] MEDS ORDERED: MIDAZOLAM HCL/PF 2 MG/2 ML VIAL. ONE (12:52)
[2019-01-18] MEDS ORDERED: KETAMINE HCL IN NACL, ISO-OSM 50 MG/5 ML SYRINGE ONE (12:52)
[2019-01-18] MEDS ORDERED: ceFAZolin SODIUM 3 GM in IV DEXTROSE 5% 100ML 100 ML IV ONE ×2 (13:00→19:00)
[2019-01-18] MEDS ORDERED: BACITRACIN 50,000 UNIT in IV NORMAL SALINE 250ML 250 ML IRR ONE (13:00)
[2019-01-18] MEDS ORDERED: LIDOCAINE 2%/EPI 1:100,000 20 ML VIAL. IJ ONE (13:15)
[2019-01-18] MEDS ORDERED: FUROSEMIDE 100 MG/10 ML VIAL. ONE (14:07)
[2019-01-18] MEDS ORDERED: FUROSEMIDE 40 MG/4 ML VIAL. IVP ONE ×2 (14:15→17:45)
[2019-01-18 14:18] VITALS: BP 126/67
[2019-01-18 15:52] VITALS: BP 151/80
--- NOTE | 2019-01-18 16:05 | CARD ---
MR#: [id number] Date of Study: 01/18/2019 Ordering Physician: ROSALIA BRYANT, Referring Physician: ROSALIA BRYANT, Tech: APPROVED REPORT EXAM Implantation automatic implantable cardioverter-defibrillator MODERATE SEDATION ADMINISTERED BY ANESTHESIA HISTORY The Patient is a 74 year-old male with a history of NICM, CAD INDICATIONS Severe LV dysfunction. EF less than 35%. 30 mL of 2% lidocaine was infiltrated into the skin and subcutaneous tissues for local anesthesia. A n incision was made over the left infraclavicular fossa and using blunt dissection and cautery a pock et was created. Venous access was obtained in the left subclavian vein and an 8Fr sheath was inserte d. Subsequently, a Biotronik bipolar active fixation right ventricular lead model Plesa Pro MRI DF-1 S D x65/15, SN [id number] was advanced under fluoroscopic guidance and the tip was positioned in the right ventricular apex. The lead was secured into place and were attached to a Biotronik dual-chamber ICD , Model Inventra 7VR-T DX, SN [id number]. This was placed in the pocket that was subsequently closed in 3 layers. Hemostasis was secured. At the end of procedure, the right ventricular lead showed sensing amplitude of 17.8 mV, impedance of 623 ohms and a threshold of 0.6volts. The right atrial lead showed a sensing amplitude of 1.1 verónica volts, impedence and threshold not performed due to afib. DFT testing was performed with VF induction. The device appropriately shocked the patient and no drop out was noted. Patient tolerated the procedure well. There were no immediate complications. CONCLUSION 1. Successful implantation of a Biotronik ICD for primary prevention for severe non-ischemic CMP with an EF of less than 35%. Signed by : Rosalia Bryant, Electronically Approved : 01/18/2019 16:05:12
--- NOTE | 2019-01-18 17:35 | PDOC ---
MODERATE SEDATION ASSESSMENT RISKS/ALTERNATIVES Risks/Alternatives Risks and alternatives of this type of sedation and procedure discussed with: RISK/ALTERNATIVES: Patient H & P ON CHART H & P H & P on chart and reviewed for co-morbid conditions and appropriate labs. H&P ON CHART: Yes STATUS PREG STATUS ASSESSED: N/A MEDS/ALLERGIES REVIEWED Meds/Allergies Reviewed Medications and Allergies including time and route of recently administered narcotics and sedatives. MEDS/ALLERGIES REVIEWED: Yes ASA RATING ASA RATING: III AIRWAY ASSESSMENT Airway Assessment Airway patency, oral function limitations, presence of caps, crowns, dentures, partials, and ability to extend neck assessed. AIRWAY ASSESSMENT: Yes MALLAMPATI SCORE MALLAMPATI SCORE: II PRE-SEDATION ASSESSMENT PRE-SEDATION ASSESSMENT: Yes (late entry) ROSALIA BRYANT MD Jan 18, 2019 17:35
[2019-01-18] MEDS ORDERED: ONDANSETRON PF 4 MG/2 ML VIAL. IV PRN (17:45)
[2019-01-18] MEDS ORDERED: NO ANTICOAGULANT THERAPY. MC PRN (17:45)
[2019-01-18] MEDS ORDERED: oxyCODONE/APAP 5/325 1 TAB TABLET PO PRN (17:45)
[2019-01-18] MEDS ORDERED: METOPROLOL SUCC 24HR ER 25 MG TAB.ER.24H. PO ONE (17:45)
[2019-01-18 19:00] VITALS: BP 145/88
[2019-01-18] MEDS ORDERED: ACETAMINOPHEN 500 MG TABLET PO PRN (19:15)
--- NOTE | 2019-01-18 21:53 | RAD ---
PORTABLE CHEST 1V History: post pacemaker Comparison: November 24, 2005 Findings: AP portable view of the chest is submitted. There is single lead left electronic cardiac device with lead tip closer to the ventricular apex. No pneumothorax is identified. Pericardial cardiac silhouette is somewhat enlarged, somewhat larger than previously. There may be very small pleural effusion although limited evaluation of the lung base due to soft tissue attenuation and the cardiac silhouette. Impression: 1. There is single lead left electronic cardiac device, no pneumothorax. Small left pleural effusion is difficult to exclude. Electronically signed by: Maico Klein MD (01/18/2019 9:51 PM) [facility]
[2019-01-18 23:00] VITALS: BP 123/83
[2019-01-19 03:00] VITALS: BP 135/96
[2019-01-19 07:12] VITALS: BP 119/81
--- NOTE | 2019-01-19 08:21 | RAD ---
Indication:1 DAY POST PACEMAKER TECHNIQUE:Portable AP chest X-ray COMPARISON:01/18/2019 FINDINGS: Stable position of single lead cardiac pacer with its lead projecting over the heart. Heart is normal in size. Lungs are clear. No pneumothorax or effusion. Visualized bony thorax is within normal limits. IMPRESSION: No acute pulmonary process. Electronically signed by: Ramírez Evans DO (01/19/2019 8:17 AM) [facility]
[2019-01-19] MEDS ORDERED: LISINOPRIL 5 MG TABLET. PO SCH (09:00)
[2019-01-19] MEDS ORDERED: FUROSEMIDE 40 MG/4 ML VIAL. IVP ONE (09:00)
[2019-01-19] MEDS ORDERED: METOPROLOL SUCC 24HR ER 50 MG TAB.ER.24H. PO SCH (09:00)
--- NOTE | 2019-01-19 09:41 | PDOC3 ---
SHITAL SANCHEZ MAINTENANCE SPECIALIST 01/19/19 0941: Discharge Summary Visit Information Date of Admission: Jan 18, 2019 Date of Discharge: Jan 19, 2019 Admitting Diagnosis: NICM NYHA1-2, AFIB Final Diagnosis AFIB, NICM, S/P AICD Brief Hospital Course Allergies Allergies Coded Allergies Type Severity Reaction Last Updated Verified venlafaxine Allergy Intermediate Rash 01/18/18 Yes Vital Signs Vital Signs Date Time Temp Pulse Resp B/P (MAP) Pulse Ox O2 Delivery O2 Flow Rate FiO2 01/19/19 09:09 75 119/81 01/19/19 07:12 98.1 18 94 Room Air 98.1 01/18/19 14:30 4.0 Lab Results Laboratory Tests Test 01/18/19 11:45 White Blood Count 5.8 x10^3/uL (4.0-11.0) Red Blood Count 4.65 x10^6/uL (4.30-5.70) Hemoglobin 15.5 g/dL (13.0-17.5) Hematocrit 46.5 % (39.0-53.0) Mean Corpuscular Volume 100 fL (79-100) Mean Corpuscular Hemoglobin 33 pg (25-35) Mean Corpuscular Hemoglobin Concent 33 g/dL (31-37) Red Cell Distribution Width 13.9 % (11.5-14.5) Platelet Count 238 x10^3/uL (140-400) Prothrombin Time 13.2 SEC (11.7-14.0) Prothromb Time International Ratio 1.0 (0.8-1.1) Sodium Level 146 mmol/L (136-145) Potassium Level 4.5 mmol/L (3.5-5.1) Chloride Level 108 mmol/L (98-107) Carbon Dioxide Level 26 mmol/L (21-32) Anion Gap 12 (6-14) Blood Urea Nitrogen 17 mg/dL (8-26) Creatinine 0.9 mg/dL (0.7-1.3) Estimated GFR (Cockcroft-Gault) 82.3 Glucose Level 94 mg/dL (70-99) Calcium Level 8.9 mg/dL (8.5-10.1) Laboratory Tests Test 01/18/19 11:45 White Blood Count 5.8 x10^3/uL (4.0-11.0) Red Blood Count 4.65 x10^6/uL (4.30-5.70) Hemoglobin 15.5 g/dL (13.0-17.5) Hematocrit 46.5 % (39.0-53.0) Mean Corpuscular Volume 100 fL (79-100) Mean Corpuscular Hemoglobin 33 pg (25-35) Mean Corpuscular Hemoglobin Concent 33 g/dL (31-37) Red Cell Distribution Width 13.9 % (11.5-14.5) Platelet Count 238 x10^3/uL (140-400) Prothrombin Time 13.2 SEC (11.7-14.0) Prothromb Time International Ratio 1.0 (0.8-1.1) Sodium Level 146 mmol/L (136-145) Potassium Level 4.5 mmol/L (3.5-5.1) Chloride Level 108 mmol/L (98-107) Carbon Dioxide Level 26 mmol/L (21-32) Anion Gap 12 (6-14) Blood Urea Nitrogen 17 mg/dL (8-26) Creatinine 0.9 mg/dL (0.7-1.3) Estimated GFR (Cockcroft-Gault) 82.3 Glucose Level 94 mg/dL (70-99) Calcium Level 8.9 mg/dL (8.5-10.1) Brief Hospital Course Mr. Kan is a 74 old male admitted for planned AICD placement due to NICM. 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 He tolerated procedure well without complications. His left chest surgical incision is intact without swelling, erythema or oozing. Incision is well approximated with steristrips and surgical pain is controlled. Neurovascular status to LUE intact and sling is in place. Discussed incision care and LUE ROM limited restriction as well as driving restriction. Repeat interrogation revealed normal functioning and impedances. VSS. He is to resume his home meds including eliquis for stroke prevention. He remains in AFIB/atrial flutter rate controlled. .Follow up in office in 2 weeks for wound check. Discharge Information Condition at Discharge: Stable Follow Up: Weeks (2) Disposition/Orders: D/C to Home Scheduled Amiodarone Hcl (Amiodarone Hcl) 200 Mg Tablet, 1 TAB PO DAILY, #90 Ref 1 ( Reported) Entered as Reported by: TANYA MARQUEZ on 08/31/17923 Last Taken: Unknown Dose on 01/17/19 Last Action: Last Taken Edited on 1149 by MARGARITO TENORIO Apixaban (Eliquis) 5 Mg Tablet, 5 MG PO BID, (Reported) Entered as Reported by: TANYA MARQUEZ on 08/31/17923 Last Taken: Unknown Dose on 01/15/19 Last Action: Last Taken Edited on 1149 by MARGARITO TENORIO Aspirin (Aspir 81) 81 Mg Tablet.dr, 1 TAB PO DAILY, #30 Ref 5 (Reported) Entered as Reported by: TANYA MARQUEZ on 08/31/17923 Last Taken: Unknown Dose on 01/15/19 Last Action: Last Taken Edited on 1149 by MARGARITO TENORIO Atorvastatin Calcium (Lipitor) 20 Mg Tablet, 1 TAB PO DAILY, #90 Ref 1 (Reported ) Entered as Reported by: TANYA MARQUEZ on 08/31/17921 Last Taken: Unknown Dose on 01/17/19 Last Action: Last Taken Edited on 1149 by MARGARITO TENORIO Furosemide (Lasix) 40 Mg Tablet, 1 TAB PO DAILY, #90 Ref 1 (Reported) Entered as Reported by: TANYA MARQUEZ on 08/31/17921 Last Taken: Unknown Dose on 01/17/19 Last Action: Last Taken Edited on 1149 by MARGARITO TENORIO Lisinopril (Lisinopril) 2.5 Mg Tablet, 1 TAB PO DAILY, #30 Ref 5 (Reported) Entered as Reported by: TANYA MARQUEZ on 08/31/17921 Last Taken: Unknown Dose on 01/17/19 Last Action: Last Taken Edited on 1149 by MARGARITO TENORIO Metoprolol Succinate (Metoprolol Succinate ( Xl )) 25 Mg Tab.er.24h, 25 MG PO DAILY for FOR HYPERTENSION, #30 Ref 0 (Reported) Entered as Reported by: REINALDO SILVESTRE on 08/17/18 0654 Last Taken: Unknown Dose on 01/17/19 Last Action: Last Taken Edited on 1149 by MARGARITO TENORIO Potassium Chloride (Potassium Chloride) 10 Meq Capsule.er, 2 PO DAILY, (Reported ) Entered as Reported by: TANYA ALMA on 08/31/17 0923 Last Taken: Unknown Dose on 01/17/19 Last Action: Last Taken Edited on 1150 by MARGARITO TENORIO Patient Instructions Patient Instructions Must know & what to expect after device implant: 1. Your surgical dressing should be removed prior to discharge from the hospital, but allow the steri- strips to fall off naturally. 2. Activity restrictions: DO NOT raise arm above shoulder level, lift anything heavier than a gallon of milk, and no push or pull motions such as vacuuming/lawn mowing, no swinging motions (golf), etc for 4 weeks. 3. It is OK to use a cell phone or other electronic devices just be sure you do not store it in a breast pocket on the side where the device was placed. 4. Device will be interrogated prior to your discharge from the hospital and then every 3 months for defibrillators and every 6 months for pacemakers. You may be asked to have your device checked remotely from home as well, but this will depend on your particular physicians preference. 5. You may remove the arm immobilizer the day after device placement. Wear the arm immobilizer/splint at night (during sleep times) for 2 week to prevent unintended arm movement that can cause lead dislodgement. 6. Do not drive for one week as the task of driving may lead to unintended arm motion that may cause lead dislodgement. The seatbelt will also rub against the incision site & cause irritation. 7. It is our recommendation that you utilize Tylenol at home for pain control. You need to call our office if you are having uncontrollable pain at the incision site. 8. Keep your incision clean and dry. It is OK to shower. DO NOT submerge in bath, pool, or hot tub, until cleared by your doctor, as this could lead to increase risk of infection.. It is OK to use regular soap just do not scrub the incision site. Water spray from shower should not directly hit the incision. Be sure to blot dry not rub. 9. Inspect your incision daily. If you notice any increased redness, swelling , or drainage, or if you start running a fever, call the office immediately. The number is [phone]. 10. For women, if you need to protect against irritation from the bra straps, you can place a piece of gauze over the incision site for cushion. Please be sure to tape it loosely to allow air to the site & remove the gauze when you remove the bra. 11. Be sure to carry your device identification information card in your wallet/purse at all times. 12. It is OK to go through security at the airport with your device, but be sure to let the TSA know prior to proceeding as the security settings change depending on varying factors. Please do whatever is requested by security at that time. 13. Some of the newer devices may be MRI compatible but, currently, the use of these devices is not widespread, so you likely will not be able to have an MRI. Please clarify this with your physician. Special instructions for defibrillator patients: If your device recognizes a rhythm that requires treatment with a shock, you will most likely feel the shock. This is usually not a subtle feeling and it is uncomfortable. Please follow these steps if you receive a shock: Call the office if you receive one shock. Go to the emergency room if you receive two consecutive shocks- please have someone drive you & call 911 if nobody is available- DO NOT drive yourself. Call 911 if you receive more than 2 consecutive shocks. If at any time, you feel lightheaded or dizzy/faint, stop what you are doing & lie down immediately. If you are driving, get to the side of the road quickly, turn your car off & call 911 on your cell phone. DO NOT continue to drive as this may cause an accident that seriously injures yourself &/or others. Call the office at [phone] for any questions or concerns. ROSALIA BRYANT MD 01/20/19 0907: Discharge Summary Brief Hospital Course Brief Hospital Course Pt. seen and examined. Agree with above MERCHANDISER note. SHITAL SANCHEZ APRN Jan 19, 2019 09:41 ROSALIA BRYANT MD Jan 20, 2019 09:07
[2019-01-19 11:21] VITALS: BP 120/64
[2019-01-19 13:53] LABS: BASO # 0.1 x10^3/uL (0.0-0.2); BASO % 1 % (0-3); EOS # 0.1 x10^3/uL (0.0-0.7); EOS % 1 % (0-3); HEMATOCRIT 45.9 % (39.0-53.0); HEMOGLOBIN 15.4 g/dL (13.0-17.5); LYMPH # 1.7 x10^3/uL (1.0-4.8); LYMPH % 25 % (24-48); MEAN CORPUSCULAR HEMOGLOBIN 34 pg (25-35); MEAN CORPUSCULAR HGB CONC 34 g/dL (31-37); MEAN CORPUSCULAR VOLUME 100 fL (79-100); MONO # 0.7 x10^3/uL (0.0-1.1); MONO % 10 % (0-9); NEUT # 4.3 x10^3uL (1.8-7.7); NEUT % 63 % (31-73); PLATELET COUNT 212 x10^3/uL (140-400); RED BLOOD COUNT 4.61 x10^6/uL (4.30-5.70); RED CELL DISTRIBUTION WIDTH 13.5 % (11.5-14.5); WHITE BLOOD COUNT 6.8 x10^3/uL (4.0-11.0)
[2019-01-19 14:15] LABS: CALCIUM 8.9 mg/dL (8.5-10.1); CREATININE 1.2 mg/dL (0.7-1.3); POTASSIUM 4.3 mmol/L (3.5-5.1)
[2019-01-19 14:46] VITALS: BP 141/91
--- NOTE | 2019-01-19 17:59 | NUR ---
Discharge Note: [facility] Discharge instructions and discharge home medications reviewed with Patient and a copy given. All questions have been answered and understanding verbalized. The following instructions and handouts were given: ICD Handout Discontinued IV line and catheter intact. Patient discharged to home with self-care and ambulatory under own power.
--- NOTE | 2019-01-21 17:46 | PDOC1 ---
History and Physical Visit Information Date of Admission: Jan 18, 2019 at 11:37 Source: Patient History of Present Illness History of Present Illness Pleasant 74-year-old man with past medical history as noted below presenting to the hospital for implantation of a defibrillator in the setting of severe cardio myopathy and ejection fraction less than 35%. Patient denies any specific chest pain. He's had some mild exertional dyspnea over the last week or so. No syncope or palpitations. Cardiac Risk Factors Cardiac Risk Factors: Hypertension Past Medical History Cardiovascular: AFIB, CAD, CHF Current Medications Current Medications Aspirin, Toprol, Eliquis, lisinopril, Lipitor, Lasix and amiodarone Allergies Allergies Allergies Coded Allergies Type Severity Reaction Last Updated Verified venlafaxine Allergy Intermediate Rash 01/18/18 Yes Social History Smoke: No ALCOHOL: rare Drugs: None Lives: with Family Domestic Violence: Neg Family History Family History: No Significant ROS Cardiovascular: yes Edema Physical Exam General: Alert, Oriented X3 HEENT: Atraumatic Lungs: Clear to auscultation Heart: Other (irr irr, tachy) CHEST: Decresed air entry noted, Rhonchi noted Abdomen: Soft Extremities: Other (2+ edema) Skin: No rashes Neuro: Normal gait Vitals VITALS VSS - see procedure notes Labs Labs Labs reviewed. No significant abnormalities noted Images Images No new images VTE Prophylaxis Ordered VTE Prophylaxis Devices: No VTE Pharmacological Prophylaxi: No Assessment/Plan Assessment/Plan 1. NICM 2. CAD 3. Persistent afib. Plan for ICD Late entry ROSALIA BRYANT MD Jan 21, 2019 17:46
== END 2019-01-19 18:04 | disposition home or self-care (01) | DRG 226 ==
LOC: SURG 11:20 → 2 SOUTH 11:37
PROVIDERS: ADMIT Internal Medicine Cardiovascular Disease; ATTEND Internal Medicine Cardiovascular Disease
PROC: 0JH608Z Insertion of Defibrillator Generator into Chest Subcutaneous Tissue and Fascia, Open Approach (ICD-10-PCS; principal; 2019-01-18)
PROC: 02HK3KZ Insertion of Defibrillator Lead into Right Ventricle, Percutaneous Approach (ICD-10-PCS; 2019-01-18)
PROC: 4B02XTZ Measurement of Cardiac Defibrillator, External Approach (ICD-10-PCS; 2019-01-19)
DX: I42.9 Cardiomyopathy, unspecified (principal); I50.43 Acute on chronic combined systolic (congestive) and diastolic (congestive) heart failure; I48.92 Unspecified atrial flutter; I48.91 Unspecified atrial fibrillation; I25.10 Atherosclerotic heart disease of native coronary artery without angina pectoris; Z95.810 Presence of automatic (implantable) cardiac defibrillator; Z79.899 Other long term (current) drug therapy; Z88.8 Allergy status to other drugs, medicaments and biological substances
CPT/HCPCS: 33249; 36415; 71045; 80048; 83880; 85025; 85027; 85610; 93005; 93641; C1895; J0690; J1940; J2250; J3490; J7050; J7030